=== PATIENT | male | born 1970 | race Caucasian/White ===

== ENCOUNTER 2022-05-04 00:38 | Inpatient (IN) | payer OTHER, SELFPAY ==
[2022-05-04] VITALS (22 sets, daily range): BP systolic 111–145; BP diastolic 65–88; PULSE 65–93; RESP 11–20; TEMP 36.3–36.9; O2SAT 93–99; BMI 25.2
--- NOTE | ~2022-05-04 | XR_ITS ---
Clinical Indication: Chest pain PA and lateral views of the chest: Comparison: 06/11/2006 Findings: The lungs are clear, without evidence of focal consolidation or pleural effusion. Cardiome diastinal silhouette is within normal limits. Bones and soft tissues are unremarkable. Impression: Normal chest. Reviewed, dictated and finalized at location . MANAGER Impression: Normal chest.
--- NOTE | 2022-05-04 00:40 | ECG_ITS ---
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
--- NOTE | 2022-05-04 00:56 | ED.GENADULT ---
HPI - General Adult General Chief complaint: Chest Pain Stated complaint: Chest pain Time Seen by Provider: 05/04/22 00:49 History of Present Illness HPI narrative: Patient 51-year-old gentleman who presents the emergency department with chief complaint of chest pain patient reports that several days ago he had an episode where he was at home and was walking through the house and had sudden onset pain on the left side of his chest radiating to his left arm patient states he got very short of breath but reports the pain then slowly dissipated the patient states that since then symptoms have resolved. Patient reports that he took 2 325 mg aspirin at 8 PM Related Data Allergies Allergy/AdvReac Type Severity Reaction Status Date / Time No Known Allergies Allergy Unverified 11/29/17 08:13 Review of Systems Review of Systems: A 10 system review of systems was completed on the patient and is negative except for what is stated in the HPI. Nursing and ancillary documentation was reviewed. [facility] Past Medical History Medical History GERD (gastroesophageal reflux disease) Kidney stones Psoriasis Rib fractures Right hand fracture Surgical History Surgical History H/O left knee surgery Social History Social History Smoking status: Heavy tobacco smoker Alcohol intake: never Exam Narrative: GENERAL: Well-appearing, well-nourished, and in no acute distress. HEAD: Normocephalic, atraumatic. EYES: PERRLA and EOMI. ENT: Nares clear, no rhinorrhea or epistaxis. Mucous membranes moist. NECK: Supple. CHEST: Clear to auscultation. No respiratory distress. HEART: Regular rate and rhythm. No murmur heard. Normal peripheral pulses. ABDOMEN: Soft, nontender, nondistended, normal active bowel sounds. EXTREMITIES: Normal range of motion. No edema. SKIN: Warm, dry, no rash. NEURO: No focal deficits. Alert and oriented x3. PSYCH: Normal mood and affect. Course Vital Signs Vital signs: Vital Signs Pulse Rate 75 05/04/22 00:43 Respiratory Rate 16 05/04/22 00:43 Pulse Rate 81 05/04/22 01:16 Respiratory Rate 15 05/04/22 01:16 Blood Pressure 127/86 05/04/22 01:16 Pulse Oximetry 95 05/04/22 01:16 Oxygen Delivery Room Air 05/04/22 00:58 Medical Decision Making MDM Narrative Medical decision making narrative: EKG is sinus rhythm rate of [address] depressions present in V3 through V6 no ST elevations present Patient's laboratory studies show a white count of 11.3 electrolytes are within normal limits. Troponin is 0.362. Chest x-ray shows no focal infiltrate The patient has already taken aspirin prior to arrival Patient will be started on a heparin drip Case was discussed with the hospitalist the patient will be admitted to the hospital. Vital Signs Vital Signs: Vital Signs Pulse Rate 75 05/04/22 00:43 Respiratory Rate 16 05/04/22 00:43 Pulse Rate 81 05/04/22 01:16 Respiratory Rate 15 05/04/22 01:16 Blood Pressure 127/86 05/04/22 01:16 Pulse Oximetry 95 05/04/22 01:16 Oxygen Delivery Room Air 05/04/22 00:58 Lab Data 05/04/22 00:55 05/04/22 00:55 Labs: Lab Results 05/04/22 05/04/22 05/04/22 Range/Units 00:55 00:55 00:55 WBC 11.3 H (4.5-10.0) K/mm3 RBC 4.74 (4.6-6.20) M/mm3 Hgb 15.7 (14.0-18.0) g/dL Hct 45.7 (42.0-52.0) % MCV 96.4 (80-100) fl MCH 33.1 (26-34) pg MCHC 34.4 (32-36) g/dl RDW 13.5 (11.5-14.5) % Plt Count 235 (150-375) k/mm3 MPV 9.3 (7.4-10.4) fl Immature Gran % (Auto) 0.4 (0-0.5) % Neut % (Auto) 56.8 (45.5-73.1) % Lymph % (Auto) 33.8 (18.3-44.2) % [place] % (Auto) 6.2 (2.6-8.5) % Eos % (Auto) 2.3 (0-4.4) % Baso % (Auto) 0.5 (0.2-1.2) %
[2022-05-04 01:02] LABS: Basophils Absolute Auto 0.1 K/mm3 (0.0-0.1); Basophils Percent Auto 0.5 % (0.2-1.2); Eosinophils Absolute Auto 0.3 K/mm3 (0-0.3); Eosinophils Percent Auto 2.3 % (0-4.4); Hematocrit 45.7 % (42.0-52.0); Hemoglobin 15.7 g/dL (14.0-18.0); Immature Granulocyte Absolute 0.05 K/mm3 (0.00-0.031); Immature Granulocyte Percent A 0.4 % (0-0.5); Lymphocytes Absolute Auto 3.81 K/mm3 (0.9-3.2); Lymphocytes Percent Auto 33.8 % (18.3-44.2); Mean Corpuscular HGB Conc 34.4 g/dl (32-36); Mean Corpuscular Hemoglobin 33.1 pg (26-34); Mean Corpuscular Volume 96.4 fl (80-100); Mean Platelet Volume 9.3 fl (7.4-10.4); Monocytes Absolute Auto 0.7 K/mm3 (0.1-0.6); Monocytes Percent Auto 6.2 % (2.6-8.5); Neutrophils Absolute Auto 6.4 K/mm3 (1.3-6.7); Neutrophils Percent Auto 56.8 % (45.5-73.1); Platelet Count Result 235 k/mm3 (150-375); Red Blood Count 4.74 M/mm3 (4.6-6.20); Red Cell Distribution Width 13.5 % (11.5-14.5); White Blood Count 11.3 K/mm3 (4.5-10.0)
[2022-05-04 01:16] LABS: INR 0.9
[2022-05-04 01:19] LABS: Alanine Aminotransferase 28 U/L (6-50); Albumin Level 4.1 g/dL (3.5-5.1); Alkaline Phosphatase 121 U/L (38-126); Anion Gap 7 mmol/L (8-16); Aspartate Amino Transferase 26 U/L (17-59); Bilirubin,Total 0.6 mg/dL (0.2-1.3); Blood Urea Nitrogen 8 mg/dL (9-20); Calcium 8.4 mg/dL (8.4-10.2); Carbon Dioxide 26 mmol/L (22-30); Chloride 104 mmol/L (98-107); Estimated CRCL calculation 91 ml/min; Estimated Glomerular Filt Rate > 60; Glucose 96 mg/dL (65-110); Lipase 29 U/L (23-300); Potassium 3.5 mmol/L (3.4-5.0); Sodium 137 mmol/L (137-145)
[2022-05-04 01:37] LABS: Troponin I 0.362 ng/mL (0.000-0.034)
[2022-05-04 02:09] LABS: NT Pro B Type Natriuretic Pept 292 pg/mL (19.9-100)
[2022-05-04] MEDS: HEPARIN SOD/D5W 100 UNITS/ML 25,000 UNITS/250 ML BAG 10 UNITS IV CONT (02:16)
[2022-05-04] MEDS: HEPARIN SODIUM 5,000 UNITS/ML VIAL 4000 UNITS IV PUSH (02:18)
--- NOTE | 2022-05-04 03:27 | PC.NURSE ---
This patient, Lopez Pierson, was admitted to IMU Room 200-01. Patient/family oriented to hospital policies and general routines including ID bracelet, bed and alarms, visiting hours, pain management, procedures, bathroom and other care routines, personal items, smoking policy, room service/diet, and visiting hours. Information on how to activate the Rapid Response Team has been discussed. Patient/Family are encouraged to report perceived risks to care and to ask questions if they do not understand what they are told or what they should do.
[2022-05-04 03:35] LABS: Influenza A QL RT-PCR Negative (Negative); Influenza B QL RT-PCR Negative (Negative); SARS-CoV-2 RNA PCR Negative
[2022-05-04 04:41] LABS: Basophils Absolute Auto 0.1 K/mm3 (0.0-0.1); Basophils Percent Auto 0.6 % (0.2-1.2); Eosinophils Absolute Auto 0.3 K/mm3 (0-0.3); Eosinophils Percent Auto 2.1 % (0-4.4); Hematocrit 43.8 % (42.0-52.0); Hemoglobin 14.9 g/dL (14.0-18.0); Immature Granulocyte Absolute 0.06 K/mm3 (0.00-0.031); Immature Granulocyte Percent A 0.5 % (0-0.5); Lymphocytes Absolute Auto 2.61 K/mm3 (0.9-3.2); Lymphocytes Percent Auto 21.5 % (18.3-44.2); Mean Corpuscular Hemoglobin 32.7 pg (26-34); Mean Corpuscular Volume 96.3 fl (80-100); Mean Platelet Volume 9.4 fl (7.4-10.4); Monocytes Absolute Auto 0.7 K/mm3 (0.1-0.6); Neutrophils Absolute Auto 8.4 K/mm3 (1.3-6.7); Neutrophils Percent Auto 69.3 % (45.5-73.1); Platelet Count Result 228 k/mm3 (150-375); Red Blood Count 4.55 M/mm3 (4.6-6.20); Red Cell Distribution Width 13.4 % (11.5-14.5); White Blood Count 12.1 K/mm3 (4.5-10.0)
[2022-05-04 04:51] LABS: Prothrombin Time 12.3 Seconds (11.1-14.7)
[2022-05-04 04:53] LABS: Partial Thromboplastin Time 59.7 SECONDS (22.3-36.8)
[2022-05-04 05:04] LABS: Troponin I 0.354 ng/mL (0.000-0.034)
--- NOTE | 2022-05-04 05:18 | PM.IMHP ---
H&P: HPI History of Present Illness Date/Time: 05/04/22 05:18 Chief Complaint: Chest pain Narrative: 51-year-old male with a past medical history of chronic tobacco use, hyperlipidemia and low testosterone who presented to the ER via private vehicle due to chest pain. The patient reports that 2 weekends ago proximally the 19 of April he had been doing activities around the house. He stated the been up and down stairs and had been chasing the dogs around when he began having severe left-sided chest tightness. He reported that he felt very hot but denied diaphoresis. He then noted that the pain traveled down his left arm. It was accompanied with some nausea. He denied any diaphoresis or lightheadedness. The pain lasted about 5 minutes and resolved with rest. He reports that since that time he has had recurrence of the pain he any time he exerts himself to any significant degree. The pain is occurring with increasing frequency. He went to [employer] today and had to stop several times when he was walking around the store due to the pain. He became so bad that he had actually go sit down up front. He thought that the pain got better when he moved his arm around but not to any significant degree the pain simply resolved after he had rested for quite some time. He decided to come in this evening when he developed chest pain while laying down. He reported that he was already in bed and was playing a game on his phone when he had recurrence of the same kind of chest pain. He took 2 full-dose aspirins and came to the ER. He denies any palpitations. He does feel short of breath when the chest pain occurs but is not short of breath otherwise. He denies any cough or congestion. He has smoked 1.5 packs of cigarettes per day since he was about 20 years old. He denies a known history of COPD. He has not had any lower extremity swelling calf tenderness or palpitations. He has not had any fevers or chills. He does not have a known cardiac history. About 5 years ago he was being treated for low testosterone any developed polycythemia which he had phlebotomy 4. He also had some elevated cholesterol associated with his testosterone treatment. The patient does have a family history of premature coronary artery disease. His father had his 1st ND at age 43. He had a brother who of what was presumed to be viral myocarditis at age 25. The patient's pain had resolved prior to arriving to the ER. He has not had a recurrence of his chest pain. His main complaint at this time is dry mouth. He reports that his primary care physician retired and he did not like his primary care physician's replacement. Thusly, he has not seen a primary care physician in several years. Review of Systems Review of Systems: 12 systems were reviewed with pertinent positives and negatives per HPI. Except as documented in the HPI, all other systems were reviewed and are negative. He has a crowded posterior oropharynx. He denies snoring or excessive daytime fatigue. He has not had a screening colonoscopy. 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 They have 2 children ages 17 and 19. 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
[2022-05-04 06:15] LABS: Cholesterol 192 mg/dL (0-200); HDL Direct 43 mg/dL; Triglycerides 102 mg/dL (<150)
[2022-05-04 06:26] LABS: LDL Cholesterol Direct 113 mg/dL
[2022-05-04 08:42] LABS: Troponin I 0.406 ng/mL (0.000-0.034)
--- NOTE | 2022-05-04 09:56 | PM.CNCAR ---
Assessment and Plan Assessment and plan (1) Non-ST elevation MT (NSTEMI): Code(s): I21.4 - Non-ST elevation (NSTEMI) myocardial infarction Status: Acute Plan 51-year-old smoker who presents with several episodes of ischemic type chest pain starting several weeks ago. Had an episode of rest pain yesterday that prompted admission. He has been placed on IV heparin overnight and is stable is morning. Recommendation was to proceed with coronary angiography today. The patient and his understand the procedure after this consultation including the risks and are agreeable to proceed. Further recommendations will be forthcoming those findings Rudy Miles MD [facility] History of Present Illness History of Present Illness Consult date/time: 05/04/22 09:56 Reason For Visit: nstemi Narrative: This is a 51-year-old gentleman I am seeing at the request of the hospitalist in the setting of what appears to be acute coronary syndrome. The patient has a history of cigarette smoking and has the recent onset of episodes of chest pain that have created concern. The 1st of these episodes occurred about 3 weeks ago when he says he was very active 1 day with his dogs and he was chasing up some stairs after his dog since experience some chest pain he described it as a pressure-like left precordial syndrome that caused him to be short of breath described as a pressure-like or burning sensation that resolved with several minutes of rest. About a week ago he had a similar episode that occurred with similar exertion. Last night he had an episode that occurred while he was simply walking around in a store doing some shopping and another episode last night that occurred essentially at rest. This prompted him to come to the emergency room for evaluation. In the emergency room his electrocardiogram shows sinus rhythm with some ischemic looking ST segment depression across the precordial leads. His troponin levels out of normal range at 0.3 and he was placed on heparin and admitted to the IMU. I am seeing him this morning in consultation he is otherwise feeling well this morning patient is in the room with his and his daughter. 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 He also says that he smokes about a pack to a pack and half per day. He has no knowledge of dyslipidemia hypertension or diabetes. He says his father developed coronary artery disease when he was in his mid 40s at but has been treated for many years with a assurance manager insurance he is now in his mid 80s and is still alive. One of his brothers developed a viral cardiomyopathy and in his 20s. Review of Systems Constitutional: Constitutional: Reports no additional constitutional complaints Eyes: Eyes: Reports no additional eye complaints ENT: Reports system reviewed and no additional complaints, except as documented Cardiovascular: Cardiovascular: Reports as per HPI Respiratory: Respiratory: Reports no additional respiratory complaints Gastrointestinal: Gastrointestinal: Reports no additional gastrointestinal complaints Musculoskeletal: Musculoskeletal: Reports no additional musculoskeletal complaints Integumentary/Breasts: Skin/Breast: Reports system reviewed and no additional complaints, except as docu Neurologic: Reports system reviewed and no additional complaints, except as documented Endocrine: Endocrine: Reports no additional endocrine complaints Hematologic/Lymphatic: Hematologic/Lymphatic: Reports no additional hematologic/lymphatic complaints Allergic/Immunologic: Allergic/Immunologic: Reports no additional allergic/immunologic complaints [facility] Past Medical History Medical History (Updated 05/04/22 @ 07:13 by Bambi Desai DO) GERD (gastroesophageal reflux disease) Hypogonadism in male No longer receiving testosterone therapy since approximately 2018 Kidney stones Psoriasis Rib fractures Right hand fracture Secondary polycythemia Due
--- NOTE | 2022-05-04 10:48 | WPDMODSED ---
Moderate Sedation Note-Pt Data Patient Data Diagnosis: acute coronary syndrome Present Complaint: intermittent chest pain Procedure to be performed/Plan: left heart catheterization Allergies Allergy/AdvReac Type Severity Reaction Status Date / Time No Known Allergies Allergy Unverified 11/29/17 08:13 Home Medications Medication Instructions Recorded Confirmed Type No Home Medications 05/04/22 05/04/22 History Current Medications: Active Medications Aspirin (Aspirin 81 Mg Enteric Tablet) 81 mg PO QAM LUCILLE Atorvastatin Calcium (Atorvastatin 40 Mg Tablet) 40 mg PO DAILY [facility] Heparin Sodium (Porcine) (Heparin Sodium 5,000 Units/Ml Vial) 4,000 units IV PUSH PRN PRN PRN Reason: aPTT less than 55 seconds Heparin Sodium (Porcine) (Heparin Sodium 5,000 Units/Ml Vial) 3,500 units IV PUSH PRN PRN PRN Reason: aPTT 55 - 70 seconds Heparin Sodium/Dextrose (Heparin Sodium/D5w 100 Units/Ml) 25,000 units in 250 mls @ 10 mls/hr IV CONT .Q24H LUCILLE; Protocol Last Titration: 05/04/22 04:00 Dose: 1,000 units/hr, 10 mls/hr Sedation/Anesthesia: No previous sedation/anesthesia problems (including family history). [facility] Past Medical History Medical History (Updated 05/04/22 @ 07:13 by Bambi Desai DO) GERD (gastroesophageal reflux disease) Hypogonadism in male No longer receiving testosterone therapy since approximately 2018 Kidney stones Psoriasis Rib fractures Right hand fracture Secondary polycythemia Due to testosterone therapy Vitamin D deficiency Surgical History Surgical History (Updated 05/04/22 @ 07:15 by Bambi Desai DO) History of meniscectomy of left knee Family History Family History Father Myocardial infarct Social History Social History (Updated 05/04/22 @ 07:19 by Bambi Desai DO) Social History: He has been since proximally 2002. They have 2 children ages 17 and 19. 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 He has smoked as much as 1.5 packs per cigarettes since he was a teenager. He denies any significant alcohol or illicit substance use. Code status: Full code Surrogate decision maker: Smoking packs per day: 1.5 Smoking cigarettes per day: 30.0 Years smoked: 30 Smoking pack-years: 45.00 Smoking status: Heavy tobacco smoker Tobacco type: cigarettes Second hand tobacco smoke exposure: Yes Alcohol intake: never Substance use: never Lack of Transportation: No Lack of Food: Never True Current Housing: I Have Housing Concerned About Future Housing: No Difficulty Paying Gas/Electric Bills: No Difficulty Paying for Meds: No Currently Unemployed: No Education: High School Diploma/GED Difficulty w/ Childcare or Family Care: No Spiritual care concerns: No Mod Sed Physical Exam Physical Exam Pre Procedural Exam: Normal: Appearance, Neck, Throat, Airway, Lungs, Heart Size, Heart Rate, Heart Rhythm, Neuro Exam and Extremities Hours since solid foods: 12 Hours since liquid intake: 12 Mallampati Classification: class II Internal Medicine - PN: Obj Da Vital Signs Vital Signs: Vital Signs - 24 hr 05/04/22 00:45 05/04/22 00:50 05/04/22 00:43 Temperature Pulse Rate 78 79 75 Respiratory Rate 20 16 Blood Pressure 145/86 H Pulse Oximetry 96 Oxygen Delivery Room Air 05/04/22 00:45 05/04/22 00:46 05/04/22 00:58 Temperature Pulse Rate 83 84 Respiratory Rate 14 13 Blood Pressure 145/86 H Pulse Oximetry 96 Oxygen Delivery Room Air 05/04/22 00:47 05/04/22 01:11 05/04/22 01:15 Temperature Pulse Rate 79 93 83 Respiratory Rate 14 17 Blood Pressure Pulse Oximetry 94 Oxygen Delivery 05/04/22 01:16 05/04/22 01:17 05/04/22 02:00 Temperature Pulse Rate 81 82 77 Respiratory Rate 15 15 11 L Blood Pressure 127/86 Pul
--- NOTE | 2022-05-04 11:00 | PC.NURSE ---
Report given to ESMER Coreas. 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
--- NOTE | 2022-05-04 11:33 | WPDCARDPROC ---
Cardiac Cath Procedure Note Date of procedure:: 05/04/22 Performing physician:: Rudy Miles MD Indication:: acute coronary syndrome Brief clinical history:: this is a 51-year-old man longstanding smoker who entered the hospital with acute coronary syndrome. He has had several episodes of exertional chest pain and last night an episode of pain at rest that prompted him to come to the emergency room. He has ischemic ST segment changes on his electrocardiogram and a modest troponin rise. Procedure Procedure performed:: Left ventriculogram coronary angiogram insertion of intra-aortic balloon pump Sedation/Medication given:: Fentanyl 100 mg Versed 2 mg case start time 10:57 a.m. case end time 11:24 a.m. sedation provided by Kate Snell RN trained observer Access site:: right femoral artery Estimated blood loss:: 30 cc Procedure note:: patient was brought to the cardiac catheterization lab in the postabsorptive state where the right femoral triangle was prepared and draped in normal fashion. Anesthesia was provided with 1% lidocaine infiltrated locally. Using the modified Seldinger technique the femoral artery was punctured and I placed a 5 Luxembourger vascular sheath. After this left heart catheterization was carried out. I used a 5 Luxem[place]ger angled pigtail catheter to measure left-sided hemodynamics and to inject left ventriculography in the 30 degree CARRASCO projection. Following this a 5 Luxembour[place] JR4 catheter was used to engage and inject the right coronary artery. Five Luxembourger FL4 catheter was then used to engage and inject the left coronary artery in multiple projections. The cineangiograms were reviewed and it was determined that it was appropriate to place intra-aortic balloon pump for stabilization. The guidewire was placed into the thoracic aorta the sheath was withdrawn and the 8.5 Luxembourger balloon pump sheath was then placed into the artery. The balloon pump device was then advanced over the wire into the thoracic aorta in standard position. The balloon was filled and one-to-one counterpulsation was initiated and established. Angiography of the balloon pump was performed to confirm appropriate balloon position. After this the balloon pump and the insertion sheath were sutured into position with 2-0 silk ties. The patient was given a 5000 unit bolus of heparin and he was taken to the ICU for post cath recovery with the balloon pump and plans will be made for transfer to higher level of care for cardiothoracic surgery consultation because of left main disease as described below. Findings:: the left main coronary artery is moderate caliber and is patent proximally and the midportion. There is high-grade distal stenosis of the left main of 90-95%. This lesion progresses into the ostium of both the LAD and circumflex as described below. There is KATHE 3 flow at this time in the left coronary artery. The left anterior descending is a medium caliber artery extending down to the apex. There is ostial 95% stenosis of the left main as described above extending from the distal left main. The remainder of the LAD has [id number] luminal irregularities but no flow-limiting disease. The circumflex is a moderate caliber artery giving rise to the marginal branches the circumflex has 95-99% ostial stenosis once again extending from the left main disease described above. The Large marginal branches appear to be free of significant disease distal to this. the last posterior branch of the circumflex where the vessel is extremely small has a 95% stenosis. The right coronary artery is moderate caliber dominant to the posterior circulation there is mild diffuse plaquing with luminal irregularities throughout the right coronary artery. There is a RPDA that appears to be a bifurcating vessel. One of these subbranches has a 80% stenosis. left ventricle is normal in size all segments appear to contract normally. The global
--- NOTE | 2022-05-04 11:54 | WPDCNINT ---
Assessment and Plan Assessment and plan (1) Non-ST elevation [place] (NSTEMI): Code(s): I21.4 - Non-ST elevation (NSTEMI) myocardial infarction Status: Acute Assessment and Plan: Status post cardiac catheterization which showed 1.? ? Right coronary dominant circulation with critical coronary artery disease with high-grade unstable distal left main stenosis as described above which does continue into the ostium of both the LAD and circumflex vessels which are both subtotally occluded at the ostial segment says because of this lesion.? This is obviously the culprit for the patient's ACS presentation 2. ? high-grade stenosis of the last posterior branch of the circumflex which is extremely small 3. ? mild diffuse disease throughout the trunk of the right coronary artery a sub branch of the RPDA has 80% stenosis 4. ? normal left ventricular systolic function Intra-aortic balloon pump placed and is currently at 1:1 Blood pressure adequate ICU telemetry monitoring Aspirin, statin and heparin infusion Cardiology is planning to transfer patient to tertiary facility for CABG Will hold further workup including echocardiogram at this time since patient is being transferred Case discussed with Cardiology (2) Tobacco abuse counseling: Code(s): Z71.6 - Tobacco abuse counseling Status: Acute Assessment and Plan: Patient and his both counseled and patient was encouraged to quit smoking. (3) Coronary disease: Code(s): I25.10 - Atherosclerotic heart disease of [place] coronary artery without angina pectoris Status: Acute Assessment and Plan: See above (4) Back pain: Code(s): M54.9 - Dorsalgia, unspecified Status: Acute Assessment and Plan: Back pain from laying flat P.r.n. analgesic ordered (5) Urinary retention: Code(s): R33.9 - Retention of urine, unspecified Status: Acute Assessment and Plan: Patient lying flat with balloon pump able to urinate in urinal Replace [place] catheter at this time Plan DVT prophylaxis -currently on heparin drip Code Status - Full Code Total Critical Care Time - 35 minutes Due to a high probability of clinically significant, life threatening deterioration, the patient required my highest level of preparedness to intervene emergently and I personally spent this critical care time directly and personally managing the patient. This critical care time included obtaining a history; examining the patient; pulse oximetry; ordering and review of studies; arranging urgent treatment with development of a management plan; evaluation of patient's response to treatment; frequent reassessment; and discussions with other providers. It was exclusive of separately billable procedures and treating other patients and teaching time. Please see Assessment and Plan section and the rest of the note for further information on patient assessment and treatment Coil Cutter Consult Note Consult date: 05/04/22 Reason for consult: Coronary artery disease, NSTEMI HPI: Lopez Pierson is a 51 year old male with a past medical history of chronic tobacco use, hyperlipidemia who presented to the ER via private vehicle due to chest pain earlier in the a.m. today.? He reported that while chasing his dogs around he began having severe left-sided chest tightness, he felt flushed but retic, pain traveled down his left arm and was associated with some nausea.? He denied any diaphoresis or lightheadedness.? The pain lasted about 5 minutes and resolved with rest.?Since that time he has had recurrence of the pain any time he exerts himself to any significant degree and the pain is occurring with increasing frequency.? He has smoked 1.5 packs of cigarettes per day since he was about 20 years old.? He denies a known history of COPD.? He has not had any lower extremity swelling calf tenderness or palpitations.? He has not had any fevers or chills.? No known cardiac history.?
--- NOTE | 2022-05-04 12:07 | PC.NURSE ---
Patient transferred from director of cath lab to ICU bed 2 at 11:55 with a balloon pump in place.
[2022-05-04] MEDS: SODIUM CHLORIDE 0.9% IV 1,000 ML 125 ML IV CONT (12:09)
--- NOTE | 2022-05-04 12:23 | PM.IMPN ---
Progress Note: A&P Assessment and Plan (1) Non-ST elevation ID (NSTEMI): Code(s): I21.4 - Non-ST elevation (NSTEMI) myocardial infarction Status: Acute Assessment and Plan: Patient presents to the emergency room with complaints of chest pain with accelerating symptoms. Troponins are elevated but flat. EKG reviewed personally showing ST-T wave depression in anterior lateral leads consistent with ischemia. There was concern that he had unstable angina and heparin drip started. Patient was also started on aspirin and Lipitor. Cardiology was consulted. Patient underwent left heart catheterization 05/04/22: 1.? ? Right coronary dominant circulation with critical coronary artery disease with high-grade unstable distal left main stenosis as described above which does continue into the ostium of both the LAD and circumflex vessels which are both subtotally occluded at the ostial segment says because of this lesion.? This is obviously the culprit for the patient's ACS presentation 2. ? high-grade stenosis of the last posterior branch of the circumflex which is extremely small 3. ? mild diffuse disease throughout the trunk of the right coronary artery a sub branch of the RPDA has 80% stenosis 4. ? normal left ventricular systolic function Plan for transfer to tertiary care center for further management of his severe CAD. (2) Coronary disease: Code(s): I25.10 - Atherosclerotic heart disease of [place] coronary artery without angina pectoris Status: Acute Assessment and Plan: As above (3) Tobacco abuse counseling: Code(s): Z71.6 - Tobacco abuse counseling Status: Acute Assessment and Plan: Patient was educated about the benefits of smoking cessation. Subjective Date/time seen: 05/04/22 12:24 Interval history: 51yo male with hx of tobacco abuse here for chest pain and found to have critical CAD. Patient was seen earlier prior to heart catheterization. He was having some mild chest discomfort in the left axillary area without radiation. It was similar to the pain that he presented with but much less severe. Pain was not pleuritic palpable. Patient was taken for heart catheterization short time later. Exam Narrative: AF 98.5 133/88 72 12 97% ra Gen - NARD Chest - CTA bilaterally, nml RR CV - RRR S1/S2. Tele showing no significant dysrhythmias Abd - Soft, NT/ND, Positive BS Ext - No pedal edema Psych - Nml mood and affect Skin - Warm and dry Objective Data Vital Signs Vital Signs: Vital Signs - 24 hr 05/04/22 00:45 05/04/22 00:50 05/04/22 00:43 Temperature Pulse Rate 78 79 75 Respiratory Rate 20 16 Blood Pressure 145/86 H Pulse Oximetry 96 Oxygen Delivery Room Air 05/04/22 00:45 05/04/22 00:46 05/04/22 00:58 Temperature Pulse Rate 83 84 Respiratory Rate 14 13 Blood Pressure 145/86 H Pulse Oximetry 96 Oxygen Delivery Room Air 05/04/22 00:47 05/04/22 01:11 05/04/22 01:15 Temperature Pulse Rate 79 93 83 Respiratory Rate 14 17 Blood Pressure Pulse Oximetry 94 Oxygen Delivery 05/04/22 01:16 05/04/22 01:17 05/04/22 02:00 Temperature Pulse Rate 81 82 77 Respiratory Rate 15 15 11 L Blood Pressure 127/86 Pulse Oximetry 95 94 96 Oxygen Delivery 05/04/22 02:01 05/04/22 02:15 05/04/22 02:16 Temperature Pulse Rate 79 73 77 Respiratory Rate 12 13 13 Blood Pressure 117/76 115/84 Pulse Oximetry 95 95 96 Oxygen Delivery 05/04/22 03:35 05/04/22 04:00 05/04/22 04:00 Temperature 97.4 F L Pulse Rate 81 74 Respiratory Rate 20 Blood Pressure 123/74 Pulse Oximetry 99 99 Oxygen Delivery Room Air 05/04/22 06:00 05/04/22 07:55 05/04/22 08:00 Temperature 97.8 F Pulse Rate 91 66 Respiratory Rate 16 Blood Pressure 111/65 Pulse Oximetry 93 Oxygen Delivery Room Air 05/04/22 08:00 05/04/22 10:00 Temperature Pulse Rate 69 74 Respiratory Rate Blood Pressure
[2022-05-04] MEDS: MORPHINE SULFATE (*CRX) 4 MG/ML INJ IV PUSH (12:46)
[2022-05-04] MEDS: OXYMETAZOLINE HCL 0.05% NAS 15 ML BTL (*BKC) 1 SPRAY NASAL (13:39)
[2022-05-04 14:03] LABS: Basophils Percent Auto 0.5 % (0.2-1.2); Eosinophils Absolute Auto 0.1 K/mm3 (0-0.3); Eosinophils Percent Auto 0.8 % (0-4.4); Hematocrit 44.4 % (42.0-52.0); Hemoglobin 15.3 g/dL (14.0-18.0); Immature Granulocyte Absolute 0.04 K/mm3 (0.00-0.031); Immature Granulocyte Percent A 0.5 % (0-0.5); Lymphocytes Absolute Auto 1.78 K/mm3 (0.9-3.2); Lymphocytes Percent Auto 20.1 % (18.3-44.2); Mean Corpuscular HGB Conc 34.5 g/dl (32-36); Mean Corpuscular Hemoglobin 32.5 pg (26-34); Mean Corpuscular Volume 94.3 fl (80-100); Mean Platelet Volume 9.5 fl (7.4-10.4); Monocytes Absolute Auto 0.5 K/mm3 (0.1-0.6); Monocytes Percent Auto 5.5 % (2.6-8.5); Neutrophils Absolute Auto 6.4 K/mm3 (1.3-6.7); Neutrophils Percent Auto 72.6 % (45.5-73.1); Platelet Count Result 232 k/mm3 (150-375); Red Blood Count 4.71 M/mm3 (4.6-6.20); Red Cell Distribution Width 13.4 % (11.5-14.5); White Blood Count 8.8 K/mm3 (4.5-10.0)
[2022-05-04 14:15] LABS: Prothrombin Time 12.7 Seconds (11.1-14.7)
[2022-05-04 14:17] LABS: Partial Thromboplastin Time 59.6 SECONDS (22.3-36.8)
--- NOTE | 2022-05-04 14:24 | PC.NURSE ---
Cardiopulmonary Rehab Services flyer was given to patient.
--- NOTE | 2022-05-04 14:38 | PC.NURSE ---
Patient transferred to [facility] room 1208 at 1430. Patient had heparin and normal saline running upon time of transfer.
--- NOTE | 2022-05-04 14:45 | PM.TDS ---
Transfer Discharge Sum: Prov Provider Date of admission: 05/04/22 01:57 Primary care physician: DRAFTING INSTRUCTOR PHYSICIAN Admitting clinician: Bambi Desai DO Consults: 05/04/22 Consult to Physician Routine Comment: Consulting Provider: Sarah Beck call center associate/MD group to consult: Cardiology--[facility] Reason for consultation: Non STEMI Has provider been notified: Yes DS: Admitting Diagnosis Discharge Date 05/04/22 Admitting Diagnosis Chest pain DS: Discharge Diagnosis Discharge Diagnosis (1) Non-ST elevation [place] (NSTEMI): Code(s): I21.4 - Non-ST elevation (NSTEMI) myocardial infarction Status: Acute (2) Coronary disease: Code(s): I25.10 - Atherosclerotic heart disease of [place] coronary artery without angina pectoris Status: Acute (3) Tobacco abuse counseling: Code(s): Z71.6 - Tobacco abuse counseling Status: Acute (4) Back pain: Code(s): M54.9 - Dorsalgia, unspecified Status: Acute (5) Urinary retention: Code(s): R33.9 - Retention of urine, unspecified Status: Acute Transfer Discharge Sum: Med Medications Active and Home Medications: Home Medications No Home Medications 05/04/22 [History Confirmed 05/04/22] Transfer Discharge Sum: Hosp Hospital Course Hospital course: Lopez Pierson is a 51yo male with hx of tobacco abuse here for chest pain and found to have critical CAD. Please see H&P for details. Patient presents to the emergency room with complaints of chest pain with accelerating symptoms.? Troponins were elevated but flat.? EKG showing ST-T wave depression in anterior lateral leads consistent with ischemia.? There was concern that he had unstable angina and heparin drip started.? Patient was also started on aspirin and Lipitor.? Cardiology was consulted.? Patient underwent left heart catheterization 05/04/22: 1.? ? Right coronary dominant circulation with critical coronary artery disease with high-grade unstable distal left main stenosis as described above which does continue into the ostium of both the LAD and circumflex vessels which are both subtotally occluded at the ostial segment says because of this lesion.? This is obviously the culprit for the patient's ACS presentation 2. ? high-grade stenosis of the last posterior branch of the circumflex which is extremely small 3. ? mild diffuse disease throughout the trunk of the right coronary artery a sub branch of the RPDA has 80% stenosis 4. ? normal left ventricular systolic function Pt was transfered to tertiary care center for further management of his severe CAD. Time Spent with Patient Time attestation: Total time spent providing and/or coordinating transfer services: 35 minutes Exam Narrative: AF 98.5 133/88 72 12 97% ra Gen - NARD Chest - CTA bilaterally, nml RR CV - RRR S1/S2. Tele showing no significant dysrhythmias Abd - Soft, NT/ND, Positive BS Ext - No pedal edema Psych - Nml mood and affect Skin - Warm and dry DS: Data Data Completed and Pending Labs on day of discharge: Labs from last 24 hours 05/04/22 05/04/22 05/04/22 13:37 13:37 08:08 WBC 8.8 RBC 4.71 Hgb 15.3 Hct 44.4 MCV 94.3 MCH 32.5 MCHC 34.5 RDW 13.4 Plt Count 232 MPV 9.5 Immature Gran % (Auto) 0.5 Neut % (Auto) 72.6 Lymph % (Auto) 20.1 [place] % (Auto) 5.5 Eos % (Auto) 0.8 Baso % (Auto) 0.5 Lymph # (Auto) 1.78 [place] # (Auto) 0.5 Eos # (Auto) 0.1 Baso # (Auto) 0.0 Abs Immat Gran (auto) 0.04 H Absolute Neuts (auto) 6.4 Absolute Nucleated RBC 0.0 Nucleated RBC % 0.0 PT 12.7 INR 1.0 APTT 59.6 H 37.0 H Sodium Potassium Chloride Carbon Dioxide Anion Gap BUN Creatinine Estim Creat Clear Calc Estimated GFR Glucose Calcium Total Bilirubin AST ALT Alkaline Phosphatase Troponin I NT-Pro-B Natriuret Pep Total Protein Albumi
== END 2022-05-04 14:41 | disposition short-term general hospital (02) | DRG 272 ==
LOC: ANHED 02:00 → ANHIMU 02:44 → ANHICU 11:40 → ANHIMU 05-05 14:49
PROVIDERS: Admitting Provider Internal Medicine; Emergency Provider Emergency Medicine; Visit Provider Specialist
PROC: 4A023N7 Measurement of Cardiac Sampling and Pressure, Left Heart, Percutaneous Approach (ICD-10-PCS; CPT 93452; principal; 2022-05-04 11:00)
PROC: 5A02210 Assistance with Cardiac Output using Balloon Pump, Continuous (ICD-10-PCS; 2022-05-04 11:00)
DX: I21.4 Non-ST elevation (NSTEMI) myocardial infarction (principal); I25.10 Atherosclerotic heart disease of native coronary artery without angina pectoris; M54.9 Dorsalgia, unspecified; R33.9 Retention of urine, unspecified; Z20.822 Contact with and (suspected) exposure to COVID-19; K21.9 Gastro-esophageal reflux disease without esophagitis; I24.9 Acute ischemic heart disease, unspecified; L40.9 Psoriasis, unspecified; E78.5 Hyperlipidemia, unspecified; Z87.442 Personal history of urinary calculi; F17.210 Nicotine dependence, cigarettes, uncomplicated
CPT/HCPCS: 33967; 36415; 71046; 80053; 80061; 83690; 83880; 84484; 85025; 85610; 85730; 87636; 93005; 93458; 99291; A9270; C1887; C1894; J1644; J2250; J2270; J3010; J7030; J7040

== ENCOUNTER → 2022-07-21 10:59 | Outpatient (CLI) | payer OTHER, SELFPAY ==
--- NOTE | ~2022-07-21 | MR_ITS ---
MRI of the lumbar spine Clinical History: Back pain Technique: Axial T2-weighted images, and sagittal T1-weighted, T2-weighted, and T2 fat-sat images wer e acquired. Findings: There is no fracture or subluxation lumbar spine. Vertebral bodies maintain normal height a nd alignment. No suspicious bone marrow signal abnormality identified. At L1-L2, L2-L3, L3-L4, there is no disc bulge or herniation. No spinal canal stenosis or neural fora shelly narrowing at these levels. There are mild to moderate facet joint degenerative changes at these levels. At L4-L5, there is minimal disc bulge with facet arthropathy. Tiny annular fissure present. No spinal canal stenosis or neural foraminal narrowing. L5-S1, there is degenerative disc narrowing with mild diffuse disc bulge. There is facet arthropathy. No spinal canal stenosis. Possible minimal right neural foraminal narrowing. Left neural foramen pre served. Paravertebral soft tissues are unremarkable. Partially imaged right renal mass measures [address], with a hypointense rim and somewhat heterogeneous hyperintense interior. Impression: Minimal to mild degenerative spondylosis, as detailed above. 5 cm partially imaged right renal mass. Lesion does not appear to be a simple cyst. Renal cell carcin anthony is a strong consideration. Dedicated imaging of the right kidney recommended (pre and postcontras t CT or MR). Reviewed, dictated and finalized at location . Impression: Minimal to mild degenerative spondylosis, as detailed above. 5 cm partially imaged right renal mass. Lesion does not appear to be a simple c yst. Renal cell carcinoma is a strong consideration. Dedicated imaging of the r ight kidney recommended (pre and postcontrast CT or MR).
== END ==
PROVIDERS: PCP Family Medicine Sports Medicine; Visit Provider Anesthesiology Pain Medicine
DX: M54.40 Lumbago with sciatica, unspecified side (principal); G89.29 Other chronic pain; M47.896 Other spondylosis, lumbar region
CPT/HCPCS: 72148

== ENCOUNTER → 2022-07-31 10:58 | Outpatient (CLI) | payer OTHER, SELFPAY ==
--- NOTE | ~2022-07-31 | CT_ITS ---
CT of the Abdomen: Indication: Right renal mass Technique: 2.5 mm axial scans were obtained through the abdomen prior to and following intravenous a dministration of 100 cc of Omnipaque 350. Dose reduction technique was used on this scan by utilizing automated exposure control and iterative reconstruction technique. The dose-length product (DLP) was 1282.96 mGy-cm. Findings: Scans through the lung bases are unremarkable. The liver, spleen, pancreas, gallbladder, adrenals and left kidney are within normal limits. There is a 5.9 cm exophytic, heterogeneously enhancing right lower pole renal mass, suspicious for renal cell carcinoma until proven otherwise. Small nonobstructing right renal stones are noted. No evidence of aortic aneurysm. No lymphadenopathy. Visual is bowel loops are unremarkable. No ascites. Impression: 5.9 cm heterogeneously enhancing right lower pole renal mass, highly suspicious for renal cell carcin anthony. Reviewed, dictated and finalized at [facility]. Impression: 5.9 cm heterogeneously enhancing right lower pole renal mass, highly suspicious for renal cell carcinoma.
[2022-07-31 11:17] LABS: Estimated Glomerular Filt Rate > 60
== END ==
PROVIDERS: PCP Family Medicine Sports Medicine; Visit Provider Family Medicine Sports Medicine
DX: N28.89 Other specified disorders of kidney and ureter (principal)
CPT/HCPCS: 74170; Q9967

== ENCOUNTER 2022-08-06 08:30 | Outpatient (RCR) | payer OTHER, SELFPAY | END 2022-08-19 09:59 | disposition home or self-care (01) | LOC: ANHCPREHAB 08:30 | PROVIDERS: PCP Family Medicine Sports Medicine; Visit Provider Family Medicine Sports Medicine | DX: Z95.1 Presence of aortocoronary bypass graft (principal) | CPT/HCPCS: 93798 ==

== ENCOUNTER 2022-10-16 11:36 | Outpatient (CLI) | payer OTHER, SELFPAY ==
--- NOTE | ~2022-10-16 | NM_ITS ---
EXAMINATION: NM renal flow and function DATE: 10/16/2022 13:21 INDICATION: Right kidney mass. TECHNIQUE: 7.9 mCi Tc-99m MAG3 was administered IV. The patient was scanned in the supine position. A posterior abdominal radionuclide angiogram was obtained. A subsequent time course of static images of the kidneys, ureters, and bladder was obtained. COMPARISON: CT abdomen 07/31/22 FINDINGS: The posterior abdominal radionuclide angiogram and sequential static images show normal siz e, position, and morphology of the kidneys. Peak renal parenchymal uptake was 4 min in right kidney a nd 4 min in left kidney (normal peak 3-5 minutes). The relative early renal uptake was 52% on the ri ght and 48% on the left (<40% is abnormal). No abnormalities of the ureters or bladder are seen. T1/2 for clearance of activity from the right kidney and proximal collecting system was 11 minutes. T1/2 for clearance of activity from the left kidney and proximal collecting system was 10 minutes. IMPRESSION: 1. Symmetric kidney function. Reviewed, dictated and finalized at location A.
== END 2022-10-16 11:37 | disposition home or self-care (01) ==
PROVIDERS: PCP Family Medicine Sports Medicine; Visit Provider Urology
DX: N28.89 Other specified disorders of kidney and ureter (principal)
CPT/HCPCS: 78707; A9562

== ENCOUNTER 2024-02-24 10:30 | Emergency (ER) | payer OTHER, SELFPAY ==
[2024-02-24 10:46] VITALS: BP 111/80; PULSE 70; RESP 16; TEMP 36.4; O2SAT 99
--- NOTE | 2024-02-24 10:46 | ED_ITS ---
HPI - General Adult General Chief complaint: Wound/Laceration Stated complaint: Cut Finger/Shoulder/Rash Time Seen by Provider: 02/24/24 11:00 Source: patient Mode of arrival: ambulatory Limitations: no limitations History of Present Illness HPI narrative: Lopez is a 53-year-old male patient presenting to the clinic today with complaints of cut to his left 5th finger, right shoulder pain, and a rash to the middle of his upper back. He reports the right shoulder pain is been going on for approximately 2 weeks. He thinks he has rotator cuff tendinitis. Pain is to the top of the shoulder blade-is having pain with movement. States he has suffered from rotator cuff tendinitis in the past and symptoms are similar. Cut his left 5th finger yesterday around 4:00 oclock. in the afternoon. Has a flap- like laceration to the medial distal left 5th finger without nail involvement. Bleeding is controlled. Tetanus is up to date. Also reporting a itchy rash to the mid upper back that he thinks may be ringworm. Noticed this yesterday. Related Data Home Medications Medication Instructions Recorded Confirmed aspirin 81 mg chewable tablet 81 mg PO DAILY 02/24/24 02/24/24 metoprolol tartrate 25 mg tablet 25 mg PO BID 02/24/24 02/24/24 rivaroxaban 2.5 mg tablet (Xarelto) mg 02/24/24 02/24/24 rosuvastatin 40 mg tablet mg 02/24/24 Allergies Allergy/AdvReac Type Severity Reaction Status Date / Time No Known Allergies Allergy Verified 02/24/24 10:45 Review of Systems Review of Systems: Pertinent positives per HPI. Patient denies any fever, chills, rash, headache, visual changes, dizziness, cough, runny nose, sore throat, shortness of breath, chest pain, palpitations, nausea, vomiting, diarrhea, constipation, abdominal pain, or any urinary issues. [facility] Past Medical History Medical History (Updated 02/24/24 @ 11:09 by Francisco Messer APRN) GERD (gastroesophageal reflux disease) Hypogonadism in male No longer receiving testosterone therapy since approximately 2018 Kidney stones Psoriasis Rib fractures Right hand fracture Secondary polycythemia Due to testosterone therapy Vitamin D deficiency Surgical History Surgical History History of meniscectomy of left knee Family History Family History Father Myocardial infarct CAD (coronary artery disease) of artery bypass graft Sibling Diabetes mellitus Cardiomyopathy Social History Social History Social History: He has been since proximally 2002. They have 2 children ages 17 and 19. 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 He has smoked as much as 1.5 packs per cigarettes since he was a teenager. He denies any significant alcohol or illicit substance use. Code status: Full code Surrogate decision maker: Smoking packs per day: 1 Smoking cigarettes per day: 20.0 Years smoked: 36 Smoking pack-years: 36.00 Smoking status: Current every day smoker Tobacco type: cigarettes Second hand tobacco smoke exposure: Yes Smoking end date: 07/21/22 Additional smoking assessment comments: states 1- 1-1/2pkg's Alcohol intake: never Substance use: never Lack of Transportation: No Lack of Food: Never True Current Housing: I Have Housing Concerned About Future Housing: No Difficulty Paying Gas/Electric Bills: No Difficulty Paying for Meds: No Currently Unemployed: No Education: High School Diploma/GED Difficulty w/ Childcare or Family Care: No Spiritual care concerns: No Comments At the time of my signature, I reviewed and agree with the nursing past medical, surgical, social, and family history. There is no relevant family history pertinent to the patient complaint. Exam Narrative: General: Well-developed, well nourished, in no apparent distress Head: Normocephalic, atraumatic Eyes: Pupils equally round and reactive to light bilaterally, EOM intact, sclera and conjunctive clear, no discharge, lids normal Ears: TMs intact and clear, ear canals clear, no drainage, grossly hearing nor mal. Nose: Nares patent, no discharge, no inflammation, no sinus tenderness. Mouth: Oropharynx without lesions or masses, good dentition, MMM. Tongue midline, even rise and fall of uvula Neck: Supple, trachea midline, no enlargement of anterior or posterior cervical nodes, no thyroid masses or goiter palpable. Cardio: Regular rate and rhythm, s1 and s2 normal, no murmur appreciated. Resp: Clear to auscultation bilaterally anteriorly and posteriorly, no rhonchi, rales, wheezing or rubs Musculoskeletal: No deformity, tender to palpation over the AC joint of the right shoulder, positive Tsang, negative drop-arm, negative empty can and full can testing, grossly normal range of motion, muscle strength strong and equal, peripheral pulse strong, no edema, no cyanosis, normal gait and station Integumentary: Roosevelt, warm, and dry, circular red raised rash with central clearing to the mid upper back, 1.5 cm flap laceration to the left medial distal 5th finger. Bleeding is controlled Course Course Emergency Course: Portions of this record may have been created with voice recognition software. Level of Care: Express Care Visit Vital Signs Vital signs: Vital Signs Temperature 36.4 C L 02/24/24 10:46 Pulse Rate 70 02/24/24 10:46 Respiratory Rate 16 02/24/24 10:46 Blood Pressure 111/80 02/24/24 10:46 Pulse Oximetry 99 02/24/24 10:46 Temperature 36.4 C L 02/24/24 10:52 Pulse Rate 70 02/24/24 10:52 Respiratory Rate 16 02/24/24 10:52 Blood Pressure 111/80 02/24/24 10:52 Pulse Oximetry 99 02/24/24 10:52 Vital signs reviewed Medical Decision Making MDM Narrative Medical decision making narrative: At the time of visit patient is resting comfortably on the exam table. Patient appears to be nontoxic. Plan: Finger laceration is too old to suture. Recommend keeping wound clean and dry and apply mupirocin cream to the affected area to prevent infection. Patient has tinea corpus to the mid upper back. Will send in prescription for clotrimazole. I suspect patient has acute right shoulder pain possibly tendinitis. Prescription for diclofenac gel was sent to the pharmacy. Patient is unable to take oral prednisone or oral NSAIDs due to nephrectomy. Recommend taking additional Tylenol for as needed for pain Supportive measures were discussed with the patient and they voiced understanding discharge instructions and agrees to treatment plan. Return precautions reviewed Differential Diagnosis Differential Diagnosis: Tinea corpus, skin infection, laceration, cellulitis, rotator cuff tear, shoulder strain, tendinitis Vital Signs Vital Signs: Vital Signs Temperature 36.4 C L 02/24/24 10:46 Pulse Rate 70 02/24/24 10:46 Respiratory Rate 16 02/24/24 10:46 Blood Pressure 111/80 02/24/24 10:46 Pulse Oximetry 99 02/24/24 10:46 Temperature 36.4 C L 02/24/24 10:52 Pulse Rate 70 02/24/24 10:52 Respiratory Rate 16 02/24/24 10:52 Blood Pressure 111/80 02/24/24 10:52 Pulse Oximetry 99 02/24/24 10:52 Discharge Plan Discharge Clinical Impression: Tinea corporis Acute shoulder pain Qualifiers: Laterality: right Qualified Code(s): M25.511 - Pain in right shoulder Finger laceration Qualifiers: Encounter type: initial encounter Finger: little finger Damage to nail status: without damage Foreign body presence: without foreign body Laterality: left Qualified Code(s): S61.217A - Laceration without foreign body of left little finger without damage to nail, initial encounter Patient Disposition: Home, Self-Care Condition: Stable Instructions: Antibiotic Form, Laceration (ED), Tinea Corporis (ED), Shoulder Pain (ED) Additional Instructions: Leave bandage on for 24 hours then may remove and apply band aide covering as needed. Keep wound clean and dry Watch for signs and symptoms of infection- redness, streaking, swelling, purulent discharge, or increase in pain. Apply clotrimazole cream to the affected area on your back twice daily times 14 days Apply diclofenac gel to the right shoulder up to 4 times per day x1 week Follow-up with your primary care doctor in 1 week if symptoms persist Prescriptions: New clotrimazole 1 % cream 1 applic topical BID 14 Days Qty: 45 0RF mupirocin 2 % ointment 1 applic topical BID 7 Days Qty: 22 0RF diclofenac sodium 1 % gel 4 g topical QID 7 Days Qty: 100 0RF Rx Instructions: apply to single shoulder No Action aspirin [Baby Aspirin] 81 mg Tablet,Chewable 81 mg PO DAILY rosuvastatin 40 mg tablet Xarelto 2.5 mg tablet metoprolol tartrate 25 mg Tablet 25 mg PO BID Follow-up/Referrals: PHYSICIAN,MASTER MOTORCYCLE TECHNICIAN [Primary Care Provider] - Time of Disposition: 11:09 Quality NIHSS Nursing Documentation ED NIHSS nursing documentation: reviewed/agree
[2024-02-24 10:52] VITALS: BP 111/80; PULSE 70; RESP 16; TEMP 36.4; O2SAT 99
== END 2024-02-24 11:18 | disposition home or self-care (01) ==
PROVIDERS: Emergency Provider Nurse Practitioner Family
DX: B35.4 Tinea corporis (principal); S61.217A Laceration without foreign body of left little finger without damage to nail, initial encounter; M25.511 Pain in right shoulder; F17.210 Nicotine dependence, cigarettes, uncomplicated; Z79.01 Long term (current) use of anticoagulants; Z79.82 Long term (current) use of aspirin; Z79.899 Other long term (current) drug therapy; X58.XXXA Exposure to other specified factors, initial encounter
CPT/HCPCS: 99213; G0463

== ENCOUNTER 2024-05-19 19:59 | Inpatient (IN) | payer OTHER, SELFPAY ==
[2024-05-19] VITALS (7 sets, daily range): BP systolic 123–161; BP diastolic 81–92; PULSE 71–90; RESP 15–22; TEMP 36.4–37.1; O2SAT 90–100; BMI 28.8
--- NOTE | ~2024-05-19 | XR_ITS ---
CHEST RADIOGRAPH CLINICAL HISTORY: chest pain . COMPARISON: 05/04/2019 TECHNIQUE: Single portable view of the chest. FINDINGS Sternal wires and mediastinal clips are identified, the wires are midline and intact. The remainder of the cardiomediastinal silhouette is otherwise unremarkable. Increased interstitial markings are identified bilaterally, findings suggesting mild pulmonary vascul ar congestion. The lungs are otherwise clear. IMPRESSION: Mild pulmonary vascular congestion, without focal infiltrate or effusion. Reviewed, dictated and finalized at location A. [employer] PHOTOGRAPHER
--- OUTSIDE RECORDS SUMMARY | 2024-05-19 20:01 | XMS_ITS | Clinical Summary ---
Author Organization [facility] Address [address] [place] [address] Care Team Providers Care Classification Inspector Name Role Phone Mikaela Orourke MD Primary Care Provider Social History Tobacco Use Types Packs/Day Years Used Date Smoking Tobacco: Never Assessed Sex and Gender Information Value Date Recorded Sex Assigned at Not on file Legal Sex Male 8:53 AM CDT Gender Identity Not on file Sexual Orientation Not on file Plan of Treatment Health Maintenance Due Date Last Done Comments Colorectal Cancer Screening Colonoscopy (10 Years) 1971 Annual Physical 08/15/1974 Hepatitis C 08/15/1989 Hepatitis B Vaccines (1 of 3 - 19+ 3-dose series) 08/15/1990 Zoster Vaccines (1 of 2) 08/15/2021 COVID-19 Vaccine ( - 2023-2 5 season) 2023 02/03/2021, 06/16/2020 Influenza Adult (#1) 2024 DTaP, Tdap and Td Vaccines ( 2 - Td or Tdap) 09/13/2033 09/14/2023 Pneumococcal Vaccine: Pediatrics (0 to 5 Years) and At-Risk Patients (6 to 64 Years) Aged Out 09/14/2023 No longer eligible b ased on patient's age to complete this topic Meningococcal B Vaccine Aged Out No l onger eligible based on patient's age to complete this topic Meningococcal Vaccine Aged Out No faviola nghia eligible based on patient's age to complete this topic RSV Immunizations Under 20 Months Aged Out No longer eligible b ased on patient's age to complete this topic Insurance [facility] Care Teams Classification Inspector Relationship Specialty Start Date End Date Mikaela Orourke MD [address] [place] [address] PCP - General SPORTS MEDICINE 11/05/23
--- OUTSIDE RECORDS SUMMARY | 2024-05-19 20:01 | XMS_ITS | Clinical Summary ---
Author Organization [facility] Address [address] [place] [address] Care Team Providers Care Building Maintenance Engineer Name Role Phone Mikaela Orourke MD Primary Care Provider No, Physician Unavailable Rudy Miles MD Unavailable [phone] Reilly Snell MD Unavailable [phone] Torito Pierce MD Unavailable [phone] Allergies Active Allergy Reactions Criticality Noted Date Comments Nsaids (Non-Steroidal Anti-Inflammatory Drug) Other (See comments) Low 09/14/2023 Needs to avoided due to Hx of nephrectomy Apremilast Nausea & Vomiting Low 09/14/2023 Abdominal pain, nausea, vomiting Medications triamcinolone (KENALOG) 0.1 % creamIndications:Psoria sis APPLY TO THE AFFECTED AREA TWICE A DAY NEEDED, AVOID FACE AND GROIN, PULSE 2 WEEKS ON, 2 WEEKS OFF NEEDED 80 g 023 Active rivaroxaban (XARELTO) 2.5 mg tabletIndications:coron anastasia artery disease Take 1 tablet (2.5 mg total) by mouth 2 (two) times a day 180 tablet 3 024 2024 Active aspirin 81 mg chewable tablet TAKE 1 TABLET DAILY 90 tablet 3 024 Active mupirocin (BACTROBAN) 2 % ointmentIndications:Fol liculitis Apply topically 2 (two) times a day To folliculitis on chest for 1-2 weeks 22 g 1 Active rosuvastatin (CRESTOR) 40 mg tabletIndications:Coron anastasia artery disease involving karluk coronary artery of karl[place] heart without angina pectoris,Pure hypercholesterolemia TAKE 1 TABLET DAILY 90 tablet 3 024 Active metoprolol tartrate (LOPRESSOR) 25 mg immediate release tabletIndications:S/P coronary artery bypass graft x 2 TAKE 1 TABLET TWICE A DAY 200 tablet Active Active Problems Problem Noted Date Diagnosed Date S/p nephrectomy 09/14/2023 IGT (impaired glucose tolerance) 09/14/2023 Stage 3a chronic kidney disease (CKD) 04/16/2023 Assessment & Plan (09/14/2023 8:42 AM CDT): Chronic. Status post prior nephrectomy for renal cell cancer. Avoid NSAIDs and dehydration. Psoriatic arthritis 03/15/2023 Assessment & Plan (09/14/2023 8:41 AM CDT): Chronic. Symptoms wax and wane. Follows Rheumatology. Currently monitoring off treatment given intolerance to Otezla and inadequate response to Humira. Encouraged him to follow up with his city comptroller Assessment & Plan (03/15/2023 9:47 AM TAX COMPLIANCE REPRESENTATIVE): Diagnosed in the past year. Seeing Rheumatology. Plans to start on Humira. Avoid NSAIDs due to renal injury falling his right renal cell carcinoma surgery History of renal cell cancer 11/02/2022 Assessment & Plan (09/14/2023 8:44 AM CDT): Status post radical right nephrectomy. He has been surgically cured. Still follows with urologic surgeon yearly. Needs to avoid NSAIDs given history of nephrectomy and CKD Assessment & Plan (03/15/2023 9:47 AM TAX COMPLIANCE REPRESENTATIVE): Status post radical right nephrectomy. Surgically cured Cardiomyopathy, ischemic 08/07/2022 Assessment & Plan (09/14/2023 8:43 AM CDT): Chronic. Compensated. Continue metoprolol, Xarelto. Continue risk factor modification. 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 No longer seeing pain management for his musculoskeletal issues Assessment & Plan (03/15/2023 9:46 AM TAX COMPLIANCE REPRESENTATIVE): Chronic. Currently remains off narcotics. Does have pain management specialists. It is now seeing rheumatology for psoriatic arthritis Chronic pain syndrome 06/09/2022 Assessment & Plan (09/14/2023 8:43 AM CDT): Chronic. A degree of this is likely due to psoriatic arthritis. Patient is just going to monitor for now. Recommend Tylenol for pain. Should avoid NSAIDs. He does not plan to follow up with the pain management doctor anymore Assessment & Plan (03/15/2023 9:46 AM TAX COMPLIANCE REPRESENTATIVE): Chronic. Seeing rheumatology for psoriatic arthritis. Has seen pain management. Plaque psoriasis 06/09/2022 Assessment & Plan (09/14/2023 8:41 AM CDT): Chronic. Mild rash noted on extensor surfaces of his knees and hands. Sees Rheumatology. Currently off treating Assessment & Plan (03/15/2023 9:47 AM TAX COMPLIANCE REPRESENTATIVE): Chronic. Is about to start disease modifying agents with Rheumatology Pure hypercholesterolemia 06/09/2022 Assessment & Plan (09/14/2023 8:41 AM CDT): Chronic. Tolerates rosuvastatin. Targeting LDL at least less than 70. LDL goal. Continue current medication Resulted in the Past 12 Months 04/16/23 0800 CHOL 118 TRIG 77 HDL 47 LDLCALC 56 Assessment & Plan (03/15/2023 9:46 AM TAX COMPLIANCE REPRESENTATIVE): Chronic. Tolerates cholesterol medication. Check updated levels. LDL goal less than 70 Tobacco use 06/09/2022 Assessment & Plan (09/14/2023 8:42 AM CDT): Chronic. Needs to quit. Counseling provided in office today. Patient is not yet ready. Discussed recommendation for pneumococcal vaccine due to smoking and heart disease history. He agrees to this today. Discussed lung cancer screening CT. He defers for now. Quit resources were provided Assessment & Plan (03/15/2023 9:46 AM TAX COMPLIANCE REPRESENTATIVE): Chronic. Counseled to quit. Reviewed health risk S/P coronary artery bypass graft x 2 06/09/2022 Assessment & Plan (09/14/2023 8:41 AM CDT): Chronic. Continue risk factor modification with ASA, high-intensity statin, xarelto Assessment & Plan (03/15/2023 9:46 AM TAX COMPLIANCE REPRESENTATIVE): Chronic. Denies chest pain. Continue risk factor modification Coronary artery disease invo lving karluk coronary artery of karluk heart without angina pectoris 05/04/2022 Assessment & Plan (09/14/2023 8:40 AM CDT): Chronic. Denies chest pain. Continue risk factor modification with high- intensity statin, aspirin and Xarelto. Counseled to stop smoking Assessment & Plan (03/15/2023 9:45 AM TAX COMPLIANCE REPRESENTATIVE): Chronic. Denies chest pain or chest pain equivalent. Continue risk factor modification. Sees cardiology. Needs updated cholesterol. LDL goal less than 70 Resolved Problems Problem Noted Date Diagnosed Date Resolved Date Renal insufficiency 03/15/2023 09/14/19 24 Assessment & Plan (03/15/2023 9:47 AM TAX COMPLIANCE REPRESENTATIVE): New onset following right nephrectomy for RCC. Was seen by Nephrology in the hospital but has not had any follow-up evaluation. Check renal function. Avoid NSAIDs. If persistent significant kidney injury then have him see Nephrology for further evaluation Bilateral leg cramps 11/20/2022 023 Right renal mass 10/02/2022 03/15/2023 Overview (10/21/2022): Seeing urology Dr. Montejo. Renal flow and function scan shows symmetric bilateral kidney function 10/16/22 Hyperlipidemia LDL goal <70 08/07/2022 09/14/2023 Immunizations Name Administration Dates Next Due Influenza, Unspecified 04/12/2023(Deferr ed: Patient Refused),04/12/2022(Deferred: Patient Refused) Pneumococcal Conjugate Pcv20 09/14/2023 Tdap 09/14/2023 Surgical History Surgery Date Site/Laterality Comments KNEE ARTHROSCOPY W/ LATERAL RELEASE 2003 CORONARY ARTERY BYPASS GRAFT 05/04 NEPHRECTOMY RADICAL 10/10/2022 - 11/09/2022 Right For clear cell renal carcinoma and renal cyst. Medical History Medical History Date Comments GERD (gastroesophageal reflux disease) Arthritis Heart disease Psoriasis 1990 Kidney stone 2008 HLD (hyperlipidemia) Coronary artery disease Clear cell renal cell carcinoma (HCC) s/p nephrectomy Staph infection Affected neck, a pprox 06/2023. Treated by Dr. Milligan. Chickenpox Family History Medical History Relation Name Comments Early Brother 1 Eleuterio Cardiomyopathy Brother 3 Cardiomyopath y; Cause of : Cardiomyopathy Arthritis Father Juan Early Father Juan Heart attack Father Juan Arthritis Maternal Grandfather Richard Arthritis Maternal Grandmother Amira Arthritis Mother Juanita Dementia Mother Juanita Arthritis Paternal Grandfather Juvenal Early Paternal Grandfather Juvenal Heart attack Paternal Grandfather Juvenal Arthritis Paternal Grandmother Sonia Relation Name Status Comments Brother 1 Eleuterio Brother 2 (Age 25) Brother 3 Father Juan Maternal Grandfather Richard Maternal Grandmother Amira Mother Juanita Paternal Grandfather Juvenal Paternal Grandmother Sonia Social History Tobacco Use Types Packs/Day Years Used Date Smoking Tobacco: Every Day Cigarettes 1.4 38.1 Started: 1986 Smokeless Tobacco: Never Tobacco Cessation:Ready to Q uit: No; Counseling Given: Yes Alcohol Use Standard Drinks/Week Comments No 0 (1 standard drink = 0.6 oz pur e alcohol) OASIS D0700: Social Isolation Answer Da te Recorded Frequency of experiencing loneliness or isolatio n Never 05/11/2022 Social Connection and Isolation Panel [NHANES] A nswer Date Recorded In a typical week, how many times do you talk on the phone with family, friends, or neighbors? Twice a week 05/07/2022 How often do you get together with friends or re latives? Twice a week 05/07/2022 How often do you attend moravian or confucianist serv ices? Never 05/07/2022 Do you belong to any clubs o r organizations such as moravian groups, unions, fraternal or athletic groups, or school groups? No 05/07/2022 How often do you attend meet ings of the clubs or organizations you belong to? Never 05/07/2022 Are you , , di vorced, , never , or living with a partner? 05/07/2022 AUDIT-C Answer Date Recorded Q1: How often do you have a drink containing alcohol? Never 07/08/2022 Q2: How many drinks containi ng alcohol do you have on a typical day when you are drinking? Patient does not drink Frequency of Binge Drinking Not on file 06/11 Overall Financial Resource Strain (CARDIA) Answe r Date Recorded How hard is it for you to pa y for the very basics like food, housing, medical care, and heating? Somewhat hard 05/07/2022 PHQ-2 Answer Date Recorded PHQ-2 Total Score (If total score is 3 or more points, staff should administer the PHQ-9) 0 09/14/2023 PRAPARE - Transportation Answer Date Re corded In the past 12 months, has l ack of transportation kept you from medical appointments or from getting medications? No 04/13 In the past 12 months, has l ack of transportation kept you from meetings, work, or from getting things needed for daily living? No 05/07/2022 Personal Safety Answer Date Recorded Have you ever been in or are you currently in a harmful physical or emotional relationship or is someone making you feel afraid or unsafe? Denies 11/02/2022 Sex and Gender Information Value Date Recorded Sex Assigned at Not on file Legal Sex Male 12:55 PM TAX COMPLIANCE REPRESENTATIVE Gender Identity Male 06/08/2022 8:48 PM TAX COMPLIANCE REPRESENTATIVE Sexual Orientation Not on file Obstetrics History Last Filed Vital Signs Vital Sign Reading Time Taken Comments Blood Pressure 104/70 12/03/2023 10:29 AM CDT Pulse 68 12/03/2023 10:29 AM CDT Temperature 36.6 C (97.9 F) 11/04/2022 12:34 PM CDT Respiratory Rate 16 12/03/2023 10:29 AM CDT Oxygen Saturation 96% 05/25/2023 10:30 AM TAX COMPLIANCE REPRESENTATIVE Inhaled Oxygen Concentration - - Weight 93 kg (205 lb) 12/03/2023 10:29 AM CDT Height 188 cm (6' 2 ) 12/03/2023 10:29 AM CDT Body Mass Index 26.32 12/03/2023 10:29 AM CDT Plan of Treatment Health Maintenance Due Date Last Done Comments Colon Cancer Screening-Colonoscopy 1971 Hepatitis C Screening 1971 Hepatitis B Screening 08/15/1989 Zoster Vaccine (1 of 2) 08/15/1990 Covid-19 Vaccine (3 - 2023-2 5 season) 2023 02/03/2021, 06/16/2020 Influenza Vaccine (#1) 2023 Lung Cancer Screening 08/23/2024 Postpo trent from 08/15/2021 (Patient declined, but will receive in the future) Depression Screening 09/13/2024 09/14/2023, 06/09/2022 Regular Well Visit/Exam 18-64 09/13/2024 09/14/2023 Prostate Cancer Screening-PSA 04/16/2025 04/16/2023 DTaP/Tdap/Td Vaccine (2 - Td or Tdap) 09/13/2033 09/14/2023 Pneumococcal vaccine <65 Completed 09/14/2023 Medical Devices Explanted Type Area Community Health Specialist Device Identifier Shelf Expiration Date Model / Serial / Lot [employer] Clip Endoscopic Ligation Chevron Heart Shaped Horizon [id number] - Sn/Fa - [id number] Explanted:Qty: 1 on 05/05/2022 at [facility] Clip N/A: Chest [employer] [id number] / N/FA / [employer] Weck Horizon 24 Cartridge Ligate Triangulate Cross Section Heart [id number] - Sn/A - [id number] Explanted:Qty: 1 on 05/05/2022 at [facility] Clip N/A: Sternum [employer] [id number] / N/A / Procedures Procedure Name Priority Date/Time Associated Diagnosis Comments PSA SCREEN Routine 04/16/2023 8:00 AM TAX COMPLIANCE REPRESENTATIVE Screening for prostate cancer from Last 3 Months or Most Recently Relevant to Health Maintenance Results * PSA screen (04/16/2023 8:00 AM TAX COMPLIANCE REPRESENTATIVE) PSA-Total 0.23 <=3.90 ng/mL MIGUELITO LOPEZ Comment: Interpretive Data AGE SEX REFERENCE INTERVAL 0 minutes-150 years Female None 0 minutes-49 years Male None 50-59 years Male 0-3.90 60-69 years Male 0-5.40 70-79 years Male 0-6.20 80-150 years Male 0-6.20 The Cindy PSA Total assay procedure was used. Results from different manufacturers or methods may not be comparable. Serial testing should be performed using the same method. Current interpretive data last revised 21. Blood 04/16/2023 8:00 AM TAX COMPLIANCE REPRESENTATIVE 04/16/2023 2:38 PM TAX COMPLIANCE REPRESENTATIVE Mikaela Orourke MD LAB BLOOD ORDERABLES F inal Result MIGUELITO [id number] Department [place] [address] from Last 3 Months or Most Recently Relevant to Health Maintenance Insurance [facility] PL[facility] PLUS Advance Directives For more information, please contact: [phone] * Full Code (Latest Code Status on File) Date Activated Date Inactivated Comments 11/02/2022 3:51 PM 11/04/2022 7:32 PM * Full Code Date Activated Date Inactivated Comments 05/04/2022 3:54 PM 05/08/2022 5:39 PM Care Teams Building Maintenance Engineer Relationship Specialty Start Date End Date Mikaela Orourke MD PCP - General Family Practice 06/09/22 No, Physician 05/04/22 Rudy Miles MD [address] [address] Referring Physician Cardiology 05/05/22 [place] [address] [place] [address] Consulting Physician Urology 11/04/22 [place] [address] [place] [address] Consulting Physician Nephrology 11/04/22
--- OUTSIDE RECORDS SUMMARY | 2024-05-19 20:01 | XMS_ITS | Referral Summary ---
Author Organization [facility] Address [address] [place] [address] Care Team Providers Care Beam Machine Operator Name Role Phone Mikaela Orourke MD Primary Care Provider No, Physician Unavailable Rudy Miles MD Unavailable [phone] Reilly Snell MD Unavailable [phone] Torito Pierce MD Unavailable [phone] Allergies Active Allergy Reactions Criticality Noted [...] 40 mg tabletIndications:Coron anastasia artery disease involving saxman coronary artery of saxman heart without angina pectoris,Pure hypercholesterolemia TAKE 1 [...] Encouraged him to follow up with his brief writer Assessment & Plan (03/15/2023 9:47 AM STRAIGHTEDGE WORKER): Diagnosed in the past year. Seeing Rheumatology. [...] CKD Assessment & Plan (03/15/2023 9:47 AM STRAIGHTEDGE WORKER): Status post radical right nephrectomy. Surgically cured Cardiomyopathy, ischemic 08/07/2022 Assessment & Plan (09/14/2023 8:43 AM CDT): Chronic. Compensated. Continue metoprolol, Xarelto. Continue risk factor modification. 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 06/09/2022 Assessment & Plan (09/14/2023 8:40 AM CDT): Remains in remission. No longer seeing pain management for his musculoskeletal issues Assessment & Plan (03/15/2023 9:46 AM STRAIGHTEDGE WORKER): Chronic. Currently remains off narcotics. Does have [...] anymore Assessment & Plan (03/15/2023 9:46 AM STRAIGHTEDGE WORKER): Chronic. Seeing rheumatology for psoriatic arthritis. Has seen pain management. Plaque psoriasis 06/09/2022 Assessment & Plan (09/14/2023 8:41 AM CDT): Chronic. Mild rash noted on extensor surfaces of his knees and hands. Sees Rheumatology. Currently off treating Assessment & Plan (03/15/2023 9:47 AM STRAIGHTEDGE WORKER): Chronic. Is about to start disease modifying agents with Rheumatology Pure hypercholesterolemia 06/09/2022 Assessment & Plan (09/14/2023 8:41 AM CDT): Chronic. Tolerates rosuvastatin. Targeting LDL at least less than 70. LDL goal. Continue current medication Resulted in the Past 12 Months 04/16/23 0800 CHOL 118 TRIG 77 HDL 47 LDLCALC 56 Assessment & Plan (03/15/2023 9:46 AM STRAIGHTEDGE WORKER): Chronic. Tolerates cholesterol medication. Check updated levels. [...] provided Assessment & Plan (03/15/2023 9:46 AM STRAIGHTEDGE WORKER): Chronic. Counseled to quit. Reviewed health risk S/P coronary artery bypass graft x 2 06/09/2022 Assessment & Plan (09/14/2023 8:41 AM CDT): Chronic. Continue risk factor modification with ASA, high-intensity statin, xarelto Assessment & Plan (03/15/2023 9:46 AM STRAIGHTEDGE WORKER): Chronic. Denies chest pain. Continue risk factor modification Coronary artery disease invo lving saxman coronary artery of saxman heart without angina pectoris 05/04/2022 Assessment & Plan (09/14/2023 8:40 AM CDT): Chronic. Denies chest pain. Continue risk factor modification with high- intensity statin, aspirin and Xarelto. Counseled to stop smoking Assessment & Plan (03/15/2023 9:45 AM STRAIGHTEDGE WORKER): Chronic. Denies chest pain or chest pain equivalent. Continue risk factor modification. Sees cardiology. Needs updated cholesterol. LDL goal less than 70 Resolved Problems Problem Noted Date Diagnosed Date Resolved Date Renal insufficiency 03/15/2023 09/14/19 24 Assessment & Plan (03/15/2023 9:47 AM STRAIGHTEDGE WORKER): New onset following right nephrectomy for RCC. [...] Refused) Pneumococcal Conjugate Pcv20 09/14/2023 Tdap 09/14/2023 Social History Tobacco Use Types Packs/Day Years [...] week 05/07/2022 How often do you attend yazdanism or mandaen serv ices? Never 05/07/2022 Do you belong to any clubs o r organizations such as yazdanism groups, unions, fraternal or athletic groups, or [...] on file Legal Sex Male 12:55 PM STRAIGHTEDGE WORKER Gender Identity Male 06/08/2022 8:48 PM STRAIGHTEDGE WORKER Sexual Orientation Not on file Last Filed Vital Signs Vital Sign Reading Time Taken Comments Blood Pressure 104/70 12/03/2023 10:29 AM CDT Pulse 68 12/03/2023 10:29 AM CDT Temperature 36.6 C (97.9 F) 11/04/2022 12:34 PM CDT Respiratory Rate 16 12/03/2023 10:29 AM CDT Oxygen Saturation 96% 05/25/2023 10:30 AM STRAIGHTEDGE WORKER Inhaled Oxygen Concentration - - Weight 93 kg (205 lb) 12/03/2023 10:29 AM CDT Height 188 cm (6' 2 ) 12/03/2023 10:29 AM CDT Body Mass Index 26.32 12/03/2023 10:29 AM CDT Plan of Treatment Not on file Medical Devices Explanted Type Area Mix Crusher Operator Device Identifier Shelf Expiration Date Model / Serial / Lot [employer] Clip Endoscopic Ligation Chevron Heart Shaped Horizon [id number] - Sn/Fa - [id number] Explanted:Qty: 1 on 05/05/2022 at [facility] Clip N/A: Chest [employer] [id number] / N/FA / [employer] Weck Horizon 24 Cartridge Ligate Triangulate Cross Section Heart [id number] - Sn/A - [id number] Explanted:Qty: 1 on 05/05/2022 at [facility] Clip N/A: Sternum [employer] [id number] / N/A / Procedures Procedure Name Priority Date/Time Associated Diagnosis Comments PSA SCREEN Routine 04/16/2023 8:00 AM STRAIGHTEDGE WORKER Screening for prostate cancer from Last 3 Months or Most Recently Relevant to Health Maintenance Results * PSA screen (04/16/2023 8:00 AM STRAIGHTEDGE WORKER) PSA-Total 0.23 <=3.90 ng/mL MIGUELITO LOPEZ Comment: [...] last revised 21. Blood 04/16/2023 8:00 AM STRAIGHTEDGE WORKER 04/16/2023 2:38 PM STRAIGHTEDGE WORKER Mikaela Orourke MD LAB BLOOD ORDERABLES F inal Result M[facility] [address] Department [place] [address] from Last 3 Months or Most Recently Relevant to Health Maintenance Insurance [facility] CHOICE PLUS Advance Directives For more information, please contact: [phone] * Full Code (Latest Code Status on File) Date Activated Date Inactivated Comments 11/02/2022 3:51 PM 11/04/2022 7:32 PM * Full Code Date Activated Date Inactivated Comments 05/04/2022 3:54 PM 05/08/2022 5:39 PM Care Teams Beam Machine Operator Relationship Specialty Start Date End Date Mikaela Orourke MD PCP - General Family Practice 06/09/22 No, Physician 05/04/22 Rudy Miles MD [address] [address] Referring Physician Cardiology 05/05/22 [place] [address] [place] [address] Consulting Physician Urology 11/04/22 [place] [address] [place] [address] Consulting Physician Nephrology 11/04/22
--- NOTE | 2024-05-19 20:03 | ECG_ITS ---
Test Date: 2024-05-19 20:06:39 Measurements Intervals [place] Rate: 69 P: 11 NE: 142 QRS: 82 QRSD: 115 T: 88 QT: 340 QTc: 365 Interpretive Statements SINUS RHYTHM INTRAVENTRICULAR CONDUCTION DELAY INFERIOR ST ELEVATION MYOCARDIAL INJURY- ACUTE POSTERIOR INFARCT- ACUTE RECIPROCAL ST DEPRESSION IN [facility] LATERAL LEADS ABNORMAL ECG No previous ECG available for comparison Electronically Signed On 05-20-2024 06:27:00 TERRAZZO TILE SETTER by Chino Mendez D.O.
[2024-05-19] MEDS: ONDANSETRON INJ 4 MG/2 ML VIAL (20:17)
[2024-05-19] MEDS: HYDROmorphone HCL INJ (*CRX) 1 MG/ML SYR (20:17)
--- NOTE | 2024-05-19 20:18 | PC.NURSE ---
Patient groin area shaved
[2024-05-19 20:19] LABS: Basophils Absolute Auto 0.1 K/mm3 (0.0-0.1); Basophils Percent Auto 0.4 % (0.2-1.2); Eosinophils Absolute Auto 0.2 K/mm3 (0-0.3); Eosinophils Percent Auto 1.9 % (0-4.4); Hematocrit 46.7 % (42.0-52.0); Immature Granulocyte Absolute 0.04 K/mm3 (0.00-0.031); Immature Granulocyte Percent A 0.3 % (0-0.5); Lymphocytes Absolute Auto 3.91 K/mm3 (0.9-3.2); Lymphocytes Percent Auto 32.2 % (18.3-44.2); Mean Corpuscular HGB Conc 34.3 g/dl (32-36); Mean Corpuscular Hemoglobin 33.3 pg (26-34); Mean Corpuscular Volume 97.3 fl (80-100); Mean Platelet Volume 9.2 fl (7.4-10.4); Monocytes Percent Auto 8.3 % (2.6-8.5); Neutrophils Absolute Auto 6.9 K/mm3 (1.3-6.7); Neutrophils Percent Auto 56.9 % (45.5-73.1); Platelet Count Result 213 k/mm3 (150-375); Red Cell Distribution Width 13.3 % (11.5-14.5); White Blood Count 12.2 K/mm3 (4.5-10.0)
[2024-05-19] MEDS: ASPIRIN 81 MG CHEWABLE TABLET 324 MG PO (20:21)
--- NOTE | 2024-05-19 20:21 | PC.NURSE ---
Crash cart at bedside, defib pads in place
--- OUTSIDE RECORDS SUMMARY | 2024-05-19 20:26 | XMS_ITS | Clinical Summary ---
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 Seeing Rheumatology. [...] CKD Assessment & Plan (03/15/2023 9:47 AM BLADE GRADER OPERATOR): Status post radical right nephrectomy. Surgically cured Cardiomyopathy, ischemic 08/07/2022 Assessment & Plan (09/14/2023 8:43 AM CDT): Chronic. Compensated. Continue metoprolol, Xarelto. Continue risk factor modification. 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 No longer seeing pain management for his musculoskeletal issues Assessment & Plan (03/15/2023 9:46 AM BLADE GRADER OPERATOR): Chronic. Currently remains off narcotics. Does have [...] anymore Assessment & Plan (03/15/2023 9:46 AM BLADE GRADER OPERATOR): Chronic. Seeing rheumatology for psoriatic arthritis. Has seen pain management. Plaque psoriasis 06/09/2022 Assessment & Plan (09/14/2023 8:41 AM CDT): Chronic. Mild rash noted on extensor surfaces of his knees and hands. Sees Rheumatology. Currently off treating Assessment & Plan (03/15/2023 9:47 AM BLADE GRADER OPERATOR): Chronic. Is about to start disease modifying agents with Rheumatology Pure hypercholesterolemia 06/09/2022 Assessment & Plan (09/14/2023 8:41 AM CDT): Chronic. Tolerates rosuvastatin. Targeting LDL at least less than 70. LDL goal. Continue current medication Resulted in the Past 12 Months 04/16/23 0800 CHOL 118 TRIG 77 HDL 47 LDLCALC 56 Assessment & Plan (03/15/2023 9:46 AM BLADE GRADER OPERATOR): Chronic. Tolerates cholesterol medication. Check updated levels. [...] provided Assessment & Plan (03/15/2023 9:46 AM BLADE GRADER OPERATOR): Chronic. Counseled to quit. Reviewed health risk S/P coronary artery bypass graft x 2 06/09/2022 Assessment & Plan (09/14/2023 8:41 AM CDT): Chronic. Continue risk factor modification with ASA, high-intensity statin, xarelto Assessment & Plan (03/15/2023 9:46 AM BLADE GRADER OPERATOR): Chronic. Denies chest pain. Continue risk factor modification Coronary artery disease invo lving omaha coronary artery of omaha heart without angina pectoris 05/04/2022 Assessment & Plan (09/14/2023 8:40 AM CDT): Chronic. Denies chest pain. Continue risk factor modification with high- intensity statin, aspirin and Xarelto. Counseled to stop smoking Assessment & Plan (03/15/2023 9:45 AM BLADE GRADER OPERATOR): Chronic. Denies chest pain or chest pain equivalent. Continue risk factor modification. Sees cardiology. Needs updated cholesterol. LDL goal less than 70 Resolved Problems Problem Noted Date Diagnosed Date Resolved Date Renal insufficiency 03/15/2023 09/14/19 24 Assessment & Plan (03/15/2023 9:47 AM BLADE GRADER OPERATOR): New onset following right nephrectomy for RCC. [...] week 05/07/2022 How often do you attend religious or temple serv ices? Never 05/07/2022 Do you belong to any clubs o r organizations such as religious groups, unions, fraternal or athletic groups, or [...] on file Legal Sex Male 12:55 PM BLADE GRADER OPERATOR Gender Identity Male 06/08/2022 8:48 PM BLADE GRADER OPERATOR Sexual Orientation Not on file Obstetrics History Last Filed Vital Signs Vital Sign Reading Time Taken Comments Blood Pressure 104/70 12/03/2023 10:29 AM CDT Pulse 68 12/03/2023 10:29 AM CDT Temperature 36.6 C (97.9 F) 11/04/2022 12:34 PM CDT Respiratory Rate 16 12/03/2023 10:29 AM CDT Oxygen Saturation 96% 05/25/2023 10:30 AM BLADE GRADER OPERATOR Inhaled Oxygen Concentration - - Weight 93 [...] Completed 09/14/2023 Medical Devices Explanted Type Area Milk Drying Machine Operator Device Identifier Shelf Expiration Date Model / Serial / Lot [employer] Clip Endoscopic Ligation Chevron Heart Shaped Horizon [id number] - Sn/Fa - [id number] Explanted:Qty: 1 on 05/05/2022 at [facility] Clip N/A: Chest [employer] [id number] / N/FA / [employer] Weck Horizon 24 Cartridge Ligate Triangulate Cross Section Heart [id number] - Sn/A - [id number] Explanted:Qty: 1 on 05/05/2022 at [facility] Clip N/A: Sternum [employer] [id number] / N/A / Procedures Procedure Name Priority Date/Time Associated Diagnosis Comments PSA SCREEN Routine 04/16/2023 8:00 AM BLADE GRADER OPERATOR Screening for prostate cancer from Last 3 Months or Most Recently Relevant to Health Maintenance Results * PSA screen (04/16/2023 8:00 AM BLADE GRADER OPERATOR) PSA-Total 0.23 <=3.90 ng/mL MIGUELITO LOPEZ Comment: [...] last revised 21. Blood 04/16/2023 8:00 AM BLADE GRADER OPERATOR 04/16/2023 2:38 PM BLADE GRADER OPERATOR Mikaela Orourke MD LAB BLOOD ORDERABLES F inal Result MIGUELITO [id number] Department [place] [address] from Last 3 Months or Most Recently Relevant to Health Maintenance Insurance [facility] CHOICE PLUS [facility] CHOICE PLUS Advance Directives For more information, please contact: [phone] * Full Code (Latest Code Status on File) Date Activated Date Inactivated Comments 11/02/2022 3:51 PM 11/04/2022 7:32 PM * Full Code Date Activated Date Inactivated Comments 05/04/2022 3:54 PM 05/08/2022 5:39 PM Care Teams Gallery Host Relationship Specialty Start Date End Date Mikaela Orourke MD PCP - General Family Practice 06/09/22 No, Physician 05/04/22 Rudy Miles MD [address] [address] Referring Physician Cardiology 05/05/22 [place] [address] [place] [id number] Consulting Physician Urology 11/04/22 [place] [address] [place] [id number] Consulting Physician Nephrology 11/04/22
--- OUTSIDE RECORDS SUMMARY | 2024-05-19 20:26 | XMS_ITS | Clinical Summary ---
Author Organization [facility] Address [address] [place] [address] Care Team Providers Care Coach Tour Driver Name Role Phone Mikaela Orourke MD Primary [...] patient's age to complete this topic Insurance [facility] Care Teams Coach Tour Driver Relationship Specialty Start Date End Date Mikaela Orourke MD [address] [place] [address] PCP - General SPORTS MEDICINE 11/05/23
--- OUTSIDE RECORDS SUMMARY | 2024-05-19 20:26 | XMS_ITS | Referral Summary ---
Author Organization [facility] Address [address] [place] [address] Care Team Providers Care Booking Officer Name Role Phone Mikaela Orourke MD Primary Care Provider No, Physician Unavailable Rudy Miles MD Unavailable [phone] Reilly Snell MD Unavailable [phone] Torito Pierce MD Unavailable [phone] Allergies Active Allergy Reactions Criticality Noted [...] 40 mg tabletIndications:Coron anastasia artery disease involving sycuan coronary artery of sycuan heart without angina pectoris,Pure hypercholesterolemia TAKE 1 [...] Encouraged him to follow up with his zoogler Assessment & Plan (03/15/2023 9:47 AM BULK PIGMENT REDUCER): Diagnosed in the past year. Seeing Rheumatology. [...] CKD Assessment & Plan (03/15/2023 9:47 AM BULK PIGMENT REDUCER): Status post radical right nephrectomy. Surgically cured Cardiomyopathy, ischemic 08/07/2022 Assessment & Plan (09/14/2023 8:43 AM CDT): Chronic. Compensated. Continue metoprolol, Xarelto. Continue risk factor modification. 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 No longer seeing pain management for his musculoskeletal issues Assessment & Plan (03/15/2023 9:46 AM BULK PIGMENT REDUCER): Chronic. Currently remains off narcotics. Does have [...] anymore Assessment & Plan (03/15/2023 9:46 AM BULK PIGMENT REDUCER): Chronic. Seeing rheumatology for psoriatic arthritis. Has seen pain management. Plaque psoriasis 06/09/2022 Assessment & Plan (09/14/2023 8:41 AM CDT): Chronic. Mild rash noted on extensor surfaces of his knees and hands. Sees Rheumatology. Currently off treating Assessment & Plan (03/15/2023 9:47 AM BULK PIGMENT REDUCER): Chronic. Is about to start disease modifying agents with Rheumatology Pure hypercholesterolemia 06/09/2022 Assessment & Plan (09/14/2023 8:41 AM CDT): Chronic. Tolerates rosuvastatin. Targeting LDL at least less than 70. LDL goal. Continue current medication Resulted in the Past 12 Months 04/16/23 0800 CHOL 118 TRIG 77 HDL 47 LDLCALC 56 Assessment & Plan (03/15/2023 9:46 AM BULK PIGMENT REDUCER): Chronic. Tolerates cholesterol medication. Check updated levels. [...] provided Assessment & Plan (03/15/2023 9:46 AM BULK PIGMENT REDUCER): Chronic. Counseled to quit. Reviewed health risk S/P coronary artery bypass graft x 2 06/09/2022 Assessment & Plan (09/14/2023 8:41 AM CDT): Chronic. Continue risk factor modification with ASA, high-intensity statin, xarelto Assessment & Plan (03/15/2023 9:46 AM BULK PIGMENT REDUCER): Chronic. Denies chest pain. Continue risk factor modification Coronary artery disease invo lving sycuan coronary artery of sycuan heart without angina pectoris 05/04/2022 Assessment & Plan (09/14/2023 8:40 AM CDT): Chronic. Denies chest pain. Continue risk factor modification with high- intensity statin, aspirin and Xarelto. Counseled to stop smoking Assessment & Plan (03/15/2023 9:45 AM BULK PIGMENT REDUCER): Chronic. Denies chest pain or chest pain equivalent. Continue risk factor modification. Sees cardiology. Needs updated cholesterol. LDL goal less than 70 Resolved Problems Problem Noted Date Diagnosed Date Resolved Date Renal insufficiency 03/15/2023 09/14/19 24 Assessment & Plan (03/15/2023 9:47 AM BULK PIGMENT REDUCER): New onset following right nephrectomy for RCC. [...] week 05/07/2022 How often do you attend confucianist or gnosticism serv ices? Never 05/07/2022 Do you belong to any clubs o r organizations such as confucianist groups, unions, fraternal or athletic groups, or [...] on file Legal Sex Male 12:55 PM BULK PIGMENT REDUCER Gender Identity Male 06/08/2022 8:48 PM BULK PIGMENT REDUCER Sexual Orientation Not on file Last Filed Vital Signs Vital Sign Reading Time Taken Comments Blood Pressure 104/70 12/03/2023 10:29 AM CDT Pulse 68 12/03/2023 10:29 AM CDT Temperature 36.6 C (97.9 F) 11/04/2022 12:34 PM CDT Respiratory Rate 16 12/03/2023 10:29 AM CDT Oxygen Saturation 96% 05/25/2023 10:30 AM BULK PIGMENT REDUCER Inhaled Oxygen Concentration - - Weight 93 kg (205 lb) 12/03/2023 10:29 AM CDT Height 188 cm (6' 2 ) 12/03/2023 10:29 AM CDT Body Mass Index 26.32 12/03/2023 10:29 AM CDT Plan of Treatment Not on file Medical Devices Explanted Type Area Management Lead Device Identifier Shelf Expiration Date Model / Serial / Lot [employer] Clip Endoscopic Ligation Chevron Heart Shaped Horizon [id number] - Sn/Fa - [id number] Explanted:Qty: 1 on 05/05/2022 at [facility] Clip N/A: Chest [employer] [id number] / N/FA / [employer] Weck Horizon 24 Cartridge Ligate Triangulate Cross Section Heart [id number] - Sn/A - [id number] Explanted:Qty: 1 on 05/05/2022 at [facility] Clip N/A: Sternum [employer] [id number] / N/A / Procedures Procedure Name Priority Date/Time Associated Diagnosis Comments PSA SCREEN Routine 04/16/2023 8:00 AM BULK PIGMENT REDUCER Screening for prostate cancer from Last 3 Months or Most Recently Relevant to Health Maintenance Results * PSA screen (04/16/2023 8:00 AM BULK PIGMENT REDUCER) PSA-Total 0.23 <=3.90 ng/mL MIGUELITO LOPEZ Comment: [...] last revised 21. Blood 04/16/2023 8:00 AM BULK PIGMENT REDUCER 04/16/2023 2:38 PM BULK PIGMENT REDUCER Mikaela Orourke MD LAB BLOOD ORDERABLES F inal Result M[facility] [address] [place] [address] from Last 3 Months or Most Recently Relevant to Health Maintenance Insurance [facility] CHOICE PLUS Advance Directives For more information, please contact: [phone] * Full Code (Latest Code Status on File) Date Activated Date Inactivated Comments 11/02/2022 3:51 PM 11/04/2022 7:32 PM * Full Code Date Activated Date Inactivated Comments 05/04/2022 3:54 PM 05/08/2022 5:39 PM Care Teams Booking Officer Relationship Specialty Start Date End Date Mikaela Orourke MD PCP - General Family Practice 06/09/22 No, Physician 05/04/22 Rudy Miles MD [address] [address] Referring Physician Cardiology 05/05/22 [place] [address] [place] [id number] Consulting Physician Urology 11/04/22 [place] [address] [place] [address] Consulting Physician Nephrology 11/04/22
[2024-05-19 20:30] LABS: INR 0.9; Prothrombin Time 12.3 Seconds (11.1-14.7)
[2024-05-19] MEDS: HEPARIN SODIUM 5,000 UNITS/ML VIAL 4000 UNITS IV PUSH (20:30)
[2024-05-19] MEDS: HYDROmorphone HCL INJ (*CRX) 1 MG/ML SYR 0.5 MG IV PUSH ×2 (20:31→20:55)
[2024-05-19 20:37] LABS: Alanine Aminotransferase 60 U/L (6-50); Albumin Level 4.4 g/dL (3.5-5.1); Alkaline Phosphatase 113 U/L (38-126); Anion Gap 11 mmol/L (4-12); Aspartate Amino Transferase 34 U/L (17-59); Bilirubin,Total 0.6 mg/dL (0.2-1.3); Blood Urea Nitrogen 16 mg/dL (9-20); Calcium 9.1 mg/dL (8.4-10.2); Carbon Dioxide 22 mmol/L (22-30); Chloride 106 mmol/L (98-107); Estimated CRCL calculation 54 ml/min; Estimated Glomerular Filt Rate 44; Glucose 129 mg/dL (65-110); Lipase 123 U/L (23-300); Potassium 3.6 mmol/L (3.4-5.0); Sodium 139 mmol/L (137-145)
[2024-05-19 20:49] LABS: Troponin I 0.021 ng/mL (0.000-0.034)
--- NOTE | 2024-05-19 21:00 | ED_ITS ---
HPI - Chest Pain General Chief Complaint: Chest Pain Stated Complaint: chest pain Time Seen by Provider: 05/19/24 20:08 History of Present Illness HPI narrative: 53-year-old male with a past medical history including previous coronary disease with CABG that was done 2 years ago at [place]. Presents to the emergency department today with crushing substernal chest pain radiating towards his left side arm. Was in the shower when this happened associated with some nausea. No radiation to his abdomen or back. Feels like his last time he had a heart attack. Presents to the ED very diaphoretic and clutching his chest and pain. EKG obtained in triage shows a STEMI and he was brought back to room 1 for a STEMI and medical resuscitation activation. he took his rivaroxaban this morning in addition to all his other medications. He is endorsing 10 attend crushing chest pain. No difficulty in breathing. No history of aortic process to his knowledge. Related Data Home Medications ?Medication ?Instructions ?Recorded ?Confirmed ?Last Taken ?Type aspirin 81 mg chewable tablet 81 mg PO DAILY 02/24/24 02/24/24 Unknown History metoprolol tartrate 25 mg tablet 25 mg PO BID 02/24/24 02/24/24 Unknown History rivaroxaban 2.5 mg tablet (Xarelto) mg 02/24/24 02/24/24 Unknown History rosuvastatin 40 mg tablet mg 02/24/24 Unknown History Allergies Allergy/AdvReac Type Severity Reaction Status Date / Time No Known Allergies Allergy Verified 02/24/24 10:45 Review of Systems 2 Review of Systems: as reviewed above in HPI [facility] Past Medical History Medical History Vitamin D deficiency Secondary polycythemia Due to testosterone therapy Hypogonadism in male No longer receiving testosterone therapy since approximately 2018 Psoriasis Rib fractures Right hand fracture Kidney stones GERD (gastroesophageal reflux disease) Surgical History Surgical History History of meniscectomy of left knee Family History Family History Father Myocardial infarct CAD (coronary artery disease) of artery bypass graft Sibling Diabetes mellitus Cardiomyopathy Social History Social History Social History: He has been since proximally 2002. They have 2 children ages 17 and 19. 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 He has smoked as much as 1.5 packs per cigarettes since he was a teenager. He denies any significant alcohol or illicit substance use. Code status: Full code Surrogate decision maker: Smoking packs per day: 1 Smoking cigarettes per day: 20.0 Years smoked: 36 Smoking pack-years: 36.00 Smoking status: Current every day smoker Tobacco type: cigarettes Second hand tobacco smoke exposure: Yes Smoking end date: 07/21/22 Additional smoking assessment comments: states 1- 1-1/2pkg's Alcohol intake: never Substance use: never Lack of Transportation: No Lack of Food: Never True Current Housing: I Have Housing Concerned About Future Housing: No Difficulty Paying Gas/Electric Bills: No Difficulty Paying for Meds: No Currently Unemployed: No Education: High School Diploma/GED Difficulty w/ Childcare or Family Care: No Spiritual care concerns: No Exam 2 Narrative: GENERAL: very uncomfortable and ill appearing, diaphoretic, awake and answering questions HEAD: [Normocephalic, atraumatic.] EYES: [PERRLA and EOMI.] ENT: Nares clear, no rhinorrhea or epistaxis. Mucous membranes moist. NECK: Supple. CHEST: Clear to auscultation. No respiratory distress. Previous sternotomy scar appears intact without any dehiscence or evidence of infection. HEART: [Regular rate and rhythm]. No murmur heard. [Normal peripheral pulses.] ABDOMEN: [Soft, nondistended], [nontender], [No rigidity or guarding] EXTREMITIES: Normal range of motion. [No edema.] SKIN: Warm, dry, no rash. NEURO: [No focal deficits]. Alert and oriented [x3.] PSYCH: [Normal mood and affect.] Course Vital Signs Vital signs: Vital Signs Temperature 36.4 C 05/19/24 20:02 Pulse Rate 72 05/19/24 20:02 Respiratory Rate 22 H 05/19/24 20:02 Blood Pressure 161/85 H 05/19/24 20:02 Pulse Oximetry 100 05/19/24 20:02 Oxygen Delivery Room Air 05/19/24 20:02 Temperature 36.4 C 05/19/24 20:02 Pulse Rate 79 05/19/24 20:22 Respiratory Rate 16 05/19/24 20:22 Blood Pressure 144/92 H 05/19/24 20:22 Pulse Oximetry 95 05/19/24 20:22 Oxygen Delivery Room Air 05/19/24 20:23 MDM - Chest Pain MDM Narrative Medical decision making narrative: 53-year-old male presenting with crushing substernal chest pain, history of coronary disease with a CABG 2 years prior. very diaphoretic, uncomfortable appearing with 10/10 crushing chest pain. Took his Xarelto and aspirin /rosuvastatin this morning. blood pressure mildly elevated 161/85, no tachycardia but is tachypneic at 22, no hypoxia or fever. EKG obtained in triage which shows STEMI. He was brought back for STEMI activation. Immediately called the on-call reel tender Dr. Rosales and made them aware what appears to be an inferior septal ND on the EKG and we went over plan of care for STEMI and optical laboratory manager with for that he needs of heparin initiation and aspirin. Patient did receive multiple doses of dilaudid with mild improvement his symptoms and pain. Will hold off on nitroglycerin given the inferior appearance of his ND and potential hypotension. patient was re- evaluated while here in the emergency department his pain is slowly improving, blood pressure improving. quality control lab technician has arrived and patient was taken upstairs for left heart catheterization and further interventions from there. Spoke at length with all the family members and the patient and patient remains stable upon transfer from the ED. Medical Records Data Attestation: I reviewed the patient's medical records. Lab Data Attestation: I reviewed the patient's lab results. 05/19/24 20:15 05/19/24 20:15 Labs: Lab Results 05/19/24 Range/Units 20:15 WBC 12.2 H (4.5-10.0) K/mm3 RBC 4.80 (4.6-6.20) M/mm3 Hgb 16.0 (14.0-18.0) g/dL Hct 46.7 (42.0-52.0) % MCV 97.3 (80-100) fl MCH 33.3 (26-34) pg MCHC 34.3 (32-36) g/dl RDW 13.3 (11.5-14.5) % Plt Count 213 (150-375) k/mm3 MPV 9.2 (7.4-10.4) fl Immature Gran % (Auto) 0.3 (0-0.5) % Neut % (Auto) 56.9 (45.5-73.1) % Lymph % (Auto) 32.2 (18.3-44.2) % [place] % (Auto) 8.3 (2.6-8.5) % Eos % (Auto) 1.9 (0-4.4) % Baso % (Auto) 0.4 (0.2-1.2) % Lymph # (Auto) 3.91 H (0.9-3.2) K/mm3 [place] # (Auto) 1.0 H (0.1-0.6) K/mm3 Eos # (Auto) 0.2 (0-0.3) K/mm3 Baso # (Auto) 0.1 (0.0-0.1) K/mm3 Abs Immat Gran (auto) 0.04 H (0.00-0.031) K/mm3 Absolute Neuts (auto) 6.9 H (1.3-6.7) K/mm3 Absolute Nucleated RBC 0.000 (0.0-0.012) K/mm3 Nucleated RBC % 0.0 (0.0-0.2) % PT 12.3 (11.1-14.7) Seconds INR 0.9 APTT 29.0 (22.3-36.8) Seconds Sodium 139 (137-145) mmol/L Potassium 3.6 (3.4-5.0) mmol/L Chloride 106 (98-107) mmol/L Carbon Dioxide 22 (22-30) mmol/L Anion Gap 11 (4-12) mmol/L BUN 16 (9-20) mg/dL Creatinine 1.65 H (0.7-1.3) mg/dL Estim Creat Clear Calc 54 ml/min Estimated GFR 44 L (59 - ) Glucose 129 H (65-110) mg/dL Calcium 9.1 (8.4-10.2) mg/dL Total Bilirubin 0.6 (0.2-1.3) mg/dL AST 34 (17-59) U/L ALT 60 H (6-50) U/L Alkaline Phosphatase 113 (38-126) U/L Troponin I 0.021 (0.000-0.034) ng/mL Total Protein 7.0 (6.3-8.2) g/dL Albumin 4.4 (3.5-5.1) g/dL Lipase 123 (23-300) U/L Imaging Data Attestation: I personally reviewed and interpreted this imaging study as follows: My impression: IMPRESSION: Mild pulmonary vascular congestion, without focal infiltrate or effusion. ECG Data EKG #1: Attestation: I personally reviewed and interpreted this ECG as follows: ECG completion date: 05/19/24 ECG completion time: 20:06 Prior ECG tracings: available for review Ischemic changes: acute STEMI Interpretation: ST segment elevations in leads 2 3 and AVF, reciprocal depressions in leads V1, V2 and V3. Appears to be inferior septal and myocardial infarction with acute STEMI. Compared to previous EKG from 2022 these are new interval changes from his cardiac activity. Normal QTC interval, normal rate rhythm an axis, overall interpretation, acute inferior septal STEMI Critical Care Time Critical Care Time Critical Care Time: Yes Total Critical Care Time: 35 Discharge Plan Discharge Clinical Impression: ST elevation (STEMI) myocardial infarction, History of coronary artery bypass graft Patient Disposition: Still a Patient Condition: Serious Time of Disposition: 21:15
--- NOTE | 2024-05-19 22:36 | WPDMODSED ---
Moderate Sedation Note-Pt Data Patient Data Diagnosis: Inferior STEMI Present Complaint: chest pain Procedure to be performed/Plan: coronary angiogram Allergies Allergy/AdvReac Type Severity Reaction Status Date / Time No Known Allergies Allergy Verified 02/24/24 10:45 Home Medications ?Medication ?Instructions ?Recorded ?Confirmed ?Type aspirin 81 mg chewable tablet 81 mg PO DAILY 02/24/24 02/24/24 History clotrimazole 1 % topical cream 1 applic topical BID 14 days #45 02/24/24 Rx grams diclofenac sodium 1 % topical gel 4 g topical QID 7 days #100 grams 02/24/24 Rx metoprolol tartrate 25 mg tablet 25 mg PO BID 02/24/24 02/24/24 History mupirocin 2 % topical ointment 1 applic topical BID 7 days #22 02/24/24 Rx grams rivaroxaban 2.5 mg tablet (Xarelto) mg 02/24/24 02/24/24 History rosuvastatin 40 mg tablet mg 02/24/24 History Sedation/Anesthesia: No previous sedation/anesthesia problems (including family history). [facility] Past Medical History Medical History Vitamin D deficiency Secondary polycythemia Due to testosterone therapy Hypogonadism in male No longer receiving testosterone therapy since approximately 2017 Psoriasis Rib fractures Right hand fracture Kidney stones GERD (gastroesophageal reflux disease) Surgical History Surgical History History of meniscectomy of left knee Family History Family History Father Myocardial infarct CAD (coronary artery disease) of artery bypass graft Sibling Diabetes mellitus Cardiomyopathy Social History Social History Social History: He has been since proximally 2002. They have 2 children ages 17 and 19. 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 He has smoked as much as 1.5 packs per cigarettes since he was a teenager. He denies any significant alcohol or illicit substance use. Code status: Full code Surrogate decision maker: Smoking packs per day: 1 Smoking cigarettes per day: 20.0 Years smoked: 36 Smoking pack-years: 36.00 Smoking status: Current every day smoker Tobacco type: cigarettes Second hand tobacco smoke exposure: Yes Smoking end date: 07/21/22 Additional smoking assessment comments: states 1- 1-1/2pkg's Alcohol intake: never Substance use: never Lack of Transportation: No Lack of Food: Never True Current Housing: I Have Housing Concerned About Future Housing: No Difficulty Paying Gas/Electric Bills: No Difficulty Paying for Meds: No Currently Unemployed: No Education: High School Diploma/GED Difficulty w/ Childcare or Family Care: No Spiritual care concerns: No Mod Sed Physical Exam Physical Exam Pre Procedural Exam: Normal: Appearance, Eyes, Ears, Nose, Neck, Throat, Airway, Lungs, Heart Size, Heart Rate, Heart Rhythm, Neuro Exam, Abdomen, Liver, Kidneys, Spleen, Breasts, Genitalia, Extremities and Skin Hours since solid foods: 8 Hours since liquid intake: 8 Mallampati Classification: class 1 Internal Medicine - PN: Obj Da Vital Signs Vital Signs: Vital Signs - 24 hr 05/19/24 20:02 05/19/24 20:15 05/19/24 20:22 Temperature 36.4 C Pulse Rate 72 71 79 Respiratory Rate 22 H 16 Blood Pressure 161/85 H 144/92 H Pulse Oximetry 100 95 Oxygen Delivery Room Air 05/19/24 20:23 Temperature Pulse Rate Respiratory Rate Blood Pressure Pulse Oximetry Oxygen Delivery Room Air Meds/Results Radiology Results: ITS Impressions Chest X-Ray 05/19/24 20:42 IMPRESSION: Mild pulmonary vascular congestion, without focal infiltrate or effusion. Labs 05/19/24 20:15 05/19/24 20:15 Labs: Laboratory Results - last 24 hr 05/19/24 20:15 WBC 12.2 H RBC 4.80 Hgb 16.0 Hct 46.7 MCV 97.3 MCH 33.3 MCHC 34.3 RDW 13.3 Plt Count 213 MPV 9.2 Immature Gran % (Auto) 0.3 Neut % (Auto) 56.9 Lymph % (Auto) 32.2 [place] % (Auto) 8.3 Eos % (Auto) 1.9 Baso % (Auto) 0.4 Lymph # (Auto) 3.91 H [place] # (Auto) 1.0 H Eos # (Auto) 0.2 Baso # (Auto) 0.1 Abs Immat Gran (auto) 0.04 H Absolute Neuts (auto) 6.9 H Absolute Nucleated RBC 0.000 Nucleated RBC % 0.0 PT 12.3 INR 0.9 APTT 29.0 Sodium 139 Potassium 3.6 Chloride 106 Carbon Dioxide 22 Anion Gap 11 BUN 16 Creatinine 1.65 H Estim Creat Clear Calc 54 Estimated GFR 44 L Glucose 129 H Calcium 9.1 Total Bilirubin 0.6 AST 34 ALT 60 H Alkaline Phosphatase 113 Troponin I 0.021 Total Protein 7.0 Albumin 4.4 Lipase 123 ASA Classification/Sedation ASA Classification/Sedation ASA Class: I Emergent: No Risks: Risks, benefits and alternatives explained and patient/family accepted plan for sedation. Patient re-evaluated immediately prior to sedation.
--- NOTE | 2024-05-19 22:37 | WPDCARDPROC ---
Cardiac Cath Procedure Note Date of procedure:: 05/19/24 Performing physician:: Nic Rosales MD date of service 05/19/2024 Indication:: inferior STEMI Brief clinical history:: 53-year-old patient with history of CABG couple years ago SWIFT to LAD radial artery to om, hyperlipidemia, tobacco abuse and family history of CAD started having central crushing chest pain 30 minutes prior to arrival here to the hospital. EKG shows inferior ST elevations. Procedure Procedure performed:: 1-Moderate sedation that started at 9:07 p.m.and ended at 10:30 p.m. total duration 83 minutes using 3mg of Versed and 75mcg fentanyl. The registered nurse was Angeli trevino. 2-Selective left and right coronary angiogram. 3-Left heart catheterization with measurement of LVEDP and measurement of gradient across aortic valve. 4-Right common femoral arterial angiogram. 5-penumbra thrombectomy of the right coronary artery. 6- intravascular ultrasound of the right coronary artery. 7- deployment of a drug-eluting stent 3.5 x 15 brandan covering the junction of the mid to distal RCA with deployment corresponding to size 3.7 mm. 8- deployment of a drug-eluting stent brandan 4 x 22 covering proximal RCA. Post dilatation of the proximal portion of the stent to 4.5 mm . 9- coronary bypass graft angiogram. Sedation/Medication given:: Moderate sedation. Access site:: Right common femoral artery. 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 Moderate sedation was given and the right groin was infiltrated using 1% lidocaine. six Afghan sheath was obtained using micropuncture needle and the modified Seldinger technique. Selective right coronary angiogram was done using JR4 catheter with the tip of the catheter placed to the right coronary artery . After the 6 Afghan guide catheter the JR4 was engaged in the RCA and then coronary new luge wire was advanced to distal RCA. penumbra Thrombectomy was done with retrieval of blood clot. balloon angioplasty done using 3 x 10 balloon under 13 atmospheres for 25 seconds. Then proximally using the same balloon as well. Intravascular ultrasound of the RCA was done and determined that the RCA distally measures around 3.6-3.7 mm and proximally measures 4 mm distal to the Proximal lesion and 4.5 mm proximal to the lesion. after that we took a stent 3.515 brandan and deployed it in the distal portion of the RCA at the junction of the mid to the distal portion corresponding to size 3.7 mm under 25 seconds. Then we took brandan stent 4 x 22 and deployed it in the proximal lesion under nominal pressure for 25 seconds. We used noncompliant balloon 4 x 12 and inflated it in the distal portion of the stent under nominal pressure for 30 seconds and then we took 4.5 x 8 noncompliant balloon inflated it under normal pressure the proximal portion of the stent for 30 seconds. Selective left coronary angiogram was done using JL4 catheter with the tip of the catheter placed in the left main coronary artery. diagnostic 5 Afghan JR4 catheter was used to engage the radial artery graft to OM and then we also engaged with the SWIFT and SWIFT angiogram was done. . After that 5 Afghan pigtail catheter was advanced across the aortic valve into the left ventricle with measurement of LVEDP and measurement of gradient across aortic valve. Right common femoral arterial was done. Findings:: 1- left coronary artery is a large artery that divides into large LAD, large circumflex artery. distal left main 80%. 2- left anterior descending artery is Totally occluded proximally. Distal to the SWIFT touchdown LAD has minimal irregularities. 3- leftcircumflex artery is a large artery But distally there is a lesion about 70%. 4- right coronary artery is Totally occluded at the junction of the mid to the distal portion. Proximal lesion of about 80%. The rest of the artery after restoring blood flow has diffuse irregularities. 5- radial artery graft to OM widely patent. 6- SWIFT to LAD widely patent. 7- IVS of the RCA shows distally RCA measures about 3.7 mm and distal to the proximal lesion about 4 mm and proximal to the proximal lesion was 4.5 mm 5- LVEDP was 25 mm Hg and no gradient across aortic valve. 6- opening arterial pressure was 160/78and closing pressure was 130/73 7- right femoral artery angiogram shows no significant disease in the right common femoral artery. Assessment and Plan Assessment and plan (1) ST elevation (STEMI) myocardial infarction: Code(s): I21.3 - ST elevation (STEMI) myocardial infarction of unspecified site Status: Acute Plan - continue aspirin and Brilinta - tobacco cessation - aggressive risk factor modification for CAD
--- NOTE | 2024-05-19 22:48 | PM.IMHP ---
H&P: HPI History of Present Illness Date/Time: date of service 05/19/24 22:48 Chief Complaint: chest pain Narrative: 53-year-old patient with history of CABG couple years ago SWIFT to LAD radial artery to om, hyperlipidemia, tobacco abuse and family history of CAD started having central crushing chest pain 30 minutes prior to arrival here to the hospital. EKG shows inferior ST elevations. 53-year-old patient with history of CABG couple years ago SWIFT to LAD radial artery to om, hyperlipidemia, tobacco abuse and family history of CAD started having central crushing chest pain 30 minutes prior to arrival here to the hospital. EKG shows inferior ST elevations. We discussed risks and benefits of cardiac catheterization he agreed to proceed. We proceeded in emergency fashion Review of Systems Review of Systems: All systems reviewed & are unremarkable except as noted in HPI and below Constitutional: Constitutional: Denies chills, Denies fatigue, Denies fever(s), Denies headache(s) and Denies snoring Eyes: Eyes: Denies eye discharge and Denies loss of vision ENT: Denies dizziness, Denies headache(s), Denies nasal discharge and Denies sore throat Cardiovascular: Cardiovascular: Reports as per HPI, Reports chest pain, Denies syncope, Denies rapid heart rate, Denies leg edema, Reports dyspnea, Reports dyspnea on exertion, Denies orthopnea and Denies paroxysmal nocturnal dyspnea Respiratory: Respiratory: Denies chest congestion, Denies cough, Reports dyspnea, Reports dyspnea on exertion, Denies snoring and Denies wheezing Gastrointestinal: Gastrointestinal: Denies abdominal pain, Denies diarrhea, Denies nausea and Denies vomiting Genitourinary: Genitourinary: Denies hematuria, Denies dysuria, Denies flank pain and Denies urinary frequency Musculoskeletal: Musculoskeletal: Denies myalgias, Denies arthralgias and Denies joint swelling Neurologic: Denies Abnormal speech present, Denies dizziness, Denies syncope, Denies headache(s), Denies focal weakness and Denies loss of vision Psychiatric: Psychiatric: Denies anxiety and Denies depression Endocrine: Endocrine: Denies cold intolerance, Denies fatigue and Denies heat intolerance Hematologic/Lymphatic: Hematologic/Lymphatic: Denies easy bleeding and Denies easy bruising Allergic/Immunologic: Allergic/Immunologic: Denies urticaria and Denies wheezing PMFSH Past Medical History Medical History Vitamin D deficiency Secondary polycythemia Due to testosterone therapy Hypogonadism in male No longer receiving testosterone therapy since approximately 2018 Psoriasis Rib fractures Right hand fracture Kidney stones GERD (gastroesophageal reflux disease) Surgical History Surgical History History of meniscectomy of left knee Family History Family History Father Myocardial infarct CAD (coronary artery disease) of artery bypass graft Sibling Diabetes mellitus Cardiomyopathy Social History Social History Social History: He has been since proximally 2002. They have 2 children ages 17 and 19. 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 He has smoked as much as 1.5 packs per cigarettes since he was a teenager. He denies any significant alcohol or illicit substance use. Code status: Full code Surrogate decision maker: Smoking packs per day: 1 Smoking cigarettes per day: 20.0 Years smoked: 36 Smoking pack-years: 36.00 Smoking status: Current every day smoker Tobacco type: cigarettes Second hand tobacco smoke exposure: Yes Smoking end date: 07/21/22 Additional smoking assessment comments: states 1- 1-1/2pkg's Alcohol intake: never Substance use: never Lack of Transportation: No Lack of Food: Never True Current Housing: I Have Housing Concerned About Future Housing: No Difficulty Paying Gas/Electric Bills: No Difficulty Paying for Meds: No Currently Unemployed: No Education: High School Diploma/GED Difficulty w/ Childcare or Family Care: No Spiritual care concerns: No Meds Home Medications and Allergies Home Medications ?Medication ?Instructions ?Recorded ?Confirmed ?Type aspirin 81 mg chewable tablet 81 mg PO DAILY 02/24/24 02/24/24 History clotrimazole 1 % topical cream 1 applic topical BID 14 days #45 02/24/24 Rx grams diclofenac sodium 1 % topical gel 4 g topical QID 7 days #100 grams 02/24/24 Rx metoprolol tartrate 25 mg tablet 25 mg PO BID 02/24/24 02/24/24 History mupirocin 2 % topical ointment 1 applic topical BID 7 days #22 02/24/24 Rx grams rivaroxaban 2.5 mg tablet (Xarelto) mg 02/24/24 02/24/24 History rosuvastatin 40 mg tablet mg 02/24/24 History Allergies Allergy/AdvReac Type Severity Reaction Status Date / Time No Known Allergies Allergy Verified 02/24/24 10:45 Vital Signs Vital Signs - 24 hr 05/19/24 20:02 05/19/24 20:15 05/19/24 20:22 Temperature 36.4 C Pulse Rate 72 71 79 Respiratory Rate 22 H 16 Blood Pressure 161/85 H 144/92 H Pulse Oximetry 100 95 Oxygen Delivery Room Air 05/19/24 20:23 Temperature Pulse Rate Respiratory Rate Blood Pressure Pulse Oximetry Oxygen Delivery Room Air Exam Const: General: cooperative, healthy appearing, comfortable, no acute distress, well developed and well nourished Nutritional Appearance: well nourished Orientation/consciousness: patient oriented x3 HENMT: Head: normal to inspection, normocephalic and atraumatic Ears: hearing grossly normal bilaterally and external ears normal Face/Nose/Sinus: Normal external nose present, Normal nares present, normal facial exam and No erythema Face and sinus: normal facial exam and no erythema Mouth: Yes moist mucous membranes and No lip abnormal Throat: uvula midline Eyes: General: appearance normal, both eyes and all related structures Eyelids: eyelids normal Sclera: sclerae normal Neck: Neck: normal visual inspection and full ROM Thyroid: thyroid normal Carotids: no bruits Lymphatic: lymphedema not noted Chest: Chest palpation & inspection: normal inspection of the chest and normal palpation of entire chest wall Resp: Effort & Inspection: normal respiratory effort and not labored Auscultation: clear to auscultation bilaterally, no crackles, no rales and no wheezes Cardio: Jugular venous distension: no JVD Rate: regular rate Rhythm: regular rhythm Heart sounds: S1 normal heart sound present, S2 normal heart sound present, no click, no gallops, no murmurs and no rubs Bruits: no carotid bruits GI: Inspection: normal to inspection and non-distended GI Palp: No abdominal tenderness Auscultation: normal bowel sounds Rectal Exam: deferred : General: No CVA tenderness and Yes no CVA tenderness Back/Spine/Pelvis: Back: no CVA tenderness, No CVA tenderness and No erythema Cervical Spine: cervical ROM normal Skin: General skin exam: normal color, no erythema and no pallor Lesions: no lesions Rashes: no rashes Neuro: General: patient oriented x3 and moves all extremities Cranial nerves: Yes facial symmetry Speech: normal speech Motor exam (neuro): 5/5 motor strength present throughout Extrem: General: normal to inspection and full ROM Psych: Appearance: grossly normal, well kempt and disheveled Affect: normal affect H&P: Results Labs Labs: Short CBC 05/19/24 Range/Units 20:15 WBC 12.2 H (4.5-10.0) K/mm3 Hgb 16.0 (14.0-18.0) g/dL Hct 46.7 (42.0-52.0) % Plt Count 213 (150-375) k/mm3 BMP 05/19/24 20:15 Sodium 139 Potassium 3.6 Chloride 106 Carbon Dioxide 22 BUN 16 Creatinine 1.65 H Glucose 129 H Calcium 9.1 Cardiac Enzymes 05/19/24 Range/Units 20:15 Troponin I 0.021 (0.000-0.034) ng/mL Liver Function 05/19/24 Range/Units 20:15 Total Bilirubin 0.6 (0.2-1.3) mg/dL AST 34 (17-59) U/L ALT 60 H (6-50) U/L Alkaline Phosphatase 113 (38-126) U/L Albumin 4.4 (3.5-5.1) g/dL Assessment and Plan Assessment and plan (1) ST elevation (STEMI) myocardial infarction: Code(s): I21.3 - ST elevation (STEMI) myocardial infarction of unspecified site Status: Acute (2) History of coronary artery bypass graft: Code(s): Z95.1 - Presence of aortocoronary bypass graft Status: Acute (3) Tobacco abuse counseling: Code(s): Z71.6 - Tobacco abuse counseling Status: Acute Plan in regards to STEMI risks and benefits of cardiac catheterizations cuts with the patient agreed to proceed. We proceeded in an emergency fashion. patient was found to have totally occluded RCA status post stenting of the junction of the mid to distal and proximal portion of the RCA. - he did have patent radial artery graft to OM and SWIFT to LAD. - continue aspirin and Brilinta in regards to tobacco abuse, advised to quit.. - Regards history of CABG, aggressive risk factor modification for CAD is needed. - in regards to dyslipidemia we will check lipid panel and be more aggressive with lipid management.
--- NOTE | 2024-05-19 23:01 | ADMGEN ---
This patient, Lopez Pierson, was admitted to Intensive Care Unit-2. Patient/family oriented to hospital policies and general routines including ID bracelet, bed and alarms, visiting hours, pain management, procedures, bathroom and other care routines, personal items, smoking policy, room service/diet, and visiting hours. Information on how to activate the Rapid Response Team has been discussed. Patient/Family are encouraged to report perceived risks to care and to ask questions if they do not understand what they are told or what they should do.
--- NOTE | 2024-05-19 23:21 | ECG_ITS ---
Test Date: 2024-05-19 20:12:47 Measurements Intervals [place] Rate: 68 P: 31 ND: 173 QRS: 82 QRSD: 116 T: 90 QT: 356 QTc: 379 Interpretive Statements SINUS RHYTHM INTRAVENTRICULAR CONDUCTION DELAY INFERIOR ST ELEVATION MYOCARDIAL INJURY- ACUTE POSTERIOR INFARCT, ACUTE RECIPROCAL ST DEPRESSION IN HIGH LATERAL LEADS BASELINE ARTIFACT- I, III, AVR, AVL, AVF, V4-V6 ABNORMAL ECG Compared to ECG 05/19/2024 20:06:39 NO SIGNIFICANT CHANGE Electronically Signed On 05-20-2024 06:41:03 WINDOWS VMWARE ADMINISTRATOR by Chino Mendez D.O.
--- NOTE | 2024-05-19 23:35 | ECG_ITS ---
Test Date: 2024-05-19 23:39:04 Measurements Intervals [place] Rate: 87 P: 57 PA: 158 QRS: 56 QRSD: 95 T: -24 QT: 345 QTc: 416 Interpretive Statements SINUS RHYTHM INFERIOR INFARCT, PROBABLY RECENT BORDERLINE ST-T WAVE ABNORMALITY- ANTEROLATERAL LEADS BASELINE ARTIFACT- I, III, AVL ABNORMAL ECG Compared to ECG 05/19/2024 20:12:47 STEMI NO LONGER PRESENT Electronically Signed On 05-20-2024 10:42:14 FEED HOUSE SUPERVISOR by Chino Mendez D.O.
[2024-05-19] MEDS: HYDROcodone/acetaminophen (*CRX) 5-325 MG TABLET 1 TAB PO (23:47)
[2024-05-19] MEDS: SODIUM CHLORIDE 0.9% IV 1,000 ML 125 ML IV CONT (23:53)
[2024-05-20] VITALS (31 sets, daily range): BP systolic 103–125; BP diastolic 58–86; PULSE 56–88; RESP 12–24; TEMP 36.3–37.1; O2SAT 90–100
[2024-05-20 04:09] LABS: Basophils Percent Auto 0.2 % (0.2-1.2); Eosinophils Absolute Auto 0.1 K/mm3 (0-0.3); Eosinophils Percent Auto 0.8 % (0-4.4); Hematocrit 42.2 % (42.0-52.0); Hemoglobin 14.7 g/dL (14.0-18.0); Immature Granulocyte Absolute 0.05 K/mm3 (0.00-0.031); Immature Granulocyte Percent A 0.4 % (0-0.5); Lymphocytes Absolute Auto 2.15 K/mm3 (0.9-3.2); Lymphocytes Percent Auto 18.6 % (18.3-44.2); Mean Corpuscular HGB Conc 34.8 g/dl (32-36); Mean Corpuscular Hemoglobin 33.7 pg (26-34); Mean Corpuscular Volume 96.8 fl (80-100); Mean Platelet Volume 9.4 fl (7.4-10.4); Monocytes Absolute Auto 0.9 K/mm3 (0.1-0.6); Monocytes Percent Auto 7.3 % (2.6-8.5); Neutrophils Absolute Auto 8.4 K/mm3 (1.3-6.7); Neutrophils Percent Auto 72.7 % (45.5-73.1); Platelet Count Result 168 k/mm3 (150-375); Red Blood Count 4.36 M/mm3 (4.6-6.20); Red Cell Distribution Width 13.2 % (11.5-14.5); White Blood Count 11.6 K/mm3 (4.5-10.0)
[2024-05-20 04:20] LABS: Anion Gap 7 mmol/L (4-12); Blood Urea Nitrogen 13 mg/dL (9-20); Calcium 8.5 mg/dL (8.4-10.2); Carbon Dioxide 22 mmol/L (22-30); Chloride 109 mmol/L (98-107); Cholesterol 102 mg/dL (0-200); Estimated CRCL calculation 64 ml/min; Estimated Glomerular Filt Rate 53; Glucose 103 mg/dL (65-110); HDL Direct 42 mg/dL; Potassium 3.9 mmol/L (3.4-5.0); Sodium 138 mmol/L (137-145); Triglycerides 82 mg/dL (<150)
[2024-05-20 04:31] LABS: LDL Cholesterol Direct 42 mg/dL
[2024-05-20] MEDS: HYDROcodone/acetaminophen (*CRX) 5-325 MG TABLET 1 TAB PO ×2 (05:54→18:29)
[2024-05-20] MEDS: ATORVASTATIN 40 MG TABLET 80 MG PO (08:31)
[2024-05-20] MEDS: TICAGRELOR 90 MG TABLET PO ×2 (08:31→20:25)
[2024-05-20] MEDS: ASPIRIN 81 MG CHEWABLE TABLET PO (08:31)
--- NOTE | 2024-05-20 09:05 | WPDCNINT ---
Assessment and Plan Assessment and plan (1) ST elevation (STEMI) myocardial infarction: Code(s): I21.3 - ST elevation (STEMI) myocardial infarction of unspecified site Status: Acute Assessment and Plan: 05/19/24: Patient presented with crushing chest pain, radiating to left arm, associated with nausea, diaphoresis. No shortness of breath - EKG showed inferior ST elevation MD, patient was given heparin, aspirin, Dilaudid, oxygen. -Code STEMI was activated and patient was taken to the phlebotomist medical lab assistant where he was found to have inferior ST-elevation MD status post PTCA/PCI with JAJA x2 to mid and distal RCA. -cardiology following the patient closely -continue ticagrelor, aspirin, statin (2) Coronary disease: Code(s): I25.10 - Atherosclerotic heart disease of [place] coronary artery without angina pectoris Status: Acute Assessment and Plan: Patient has had a history of coronary artery bypass graft in 2022 - (3) Tobacco abuse counseling: Code(s): Z71.6 - Tobacco abuse counseling Status: Acute Assessment and Plan: Counseled patient on tobacco cessation (4) Hyperlipidemia: Code(s): E78.5 - Hyperlipidemia, unspecified Status: Acute Assessment and Plan: Continue statin Plan DVT prophylaxis: Status post cardiac catheterization Stress ulcer prophylaxis: Not indicated Nutrition: Heart healthy diet Code Status: Full code Critical Care Time Spent: 47 minutes Due to a high probability of clinically significant, life threatening deterioration, the patient required my highest level of preparedness to intervene emergently and I personally spent this critical care time directly and personally managing the patient. This critical care time included obtaining a history; examining the patient; pulse oximetry; ordering and review of studies; arranging urgent treatment with development of a management plan; evaluation of patient's response to treatment; frequent reassessment; and discussions with other providers. It was exclusive of separately billable procedures and treating other patients and teaching time. Please see Assessment and Plan section and the rest of the note for further information on patient assessment and treatment This dictation may have been done utilizing a voice recognition system. Attempts have been made to correct errors. However, there may be uncorrected grammatical, spelling, and recognitions errors present. Excel Specialist Consult Note Consult date: 05/20/24 Reason for consult: Inferior ST-elevation MD status post PTCA/PCI with JAJA x2 to mid and distal RCA HPI: Lopez Pierson is a 53 year old male with past medical history of coronary artery disease status post CABG in 2022, vitamin-D deficiency slow, secondary polycythemia due to testosterone therapy, hypogonadism, psoriasis, kidney stones, GERD presented the ED on 05/19/2024 with complains of crushing substernal chest pain radiating to his left arm. Chest pain was 10/10 in intensity, associated with diaphoresis, nausea. In the ER he stated that it felt like colostomy had a heart attack. In the ER EKG showed inferior ST elevation MD, patient was given heparin, aspirin, Dilaudid, oxygen. Code STEMI was activated and patient was taken to the phlebotomist medical lab assistant where he was found to have inferior ST-elevation MD status post PTCA/PCI with JAJA x2 to mid and distal RCA. Post cath patient was transfer the ICU for further management Patient seen examined this morning in the ICU, is awake, alert, oriented, denies any chest pain, shortness of breath, nausea, vomiting or diaphoresis. States he feels much better. Currently hemodynamically stable, adequate urine output, afebrile Review of Systems Review of Systems: All systems reviewed & are unremarkable except as noted in HPI and below PMFSH Past Medical History Medical History Vitamin D deficiency Secondary polycythemia Due to testosterone therapy Hypogonadism in male No longer receiving testosterone therapy since approximately 2018 Psoriasis Rib fractures Right hand fracture Kidney stones GERD (gastroesophageal reflux disease) Surgical History Surgical History History of meniscectomy of left knee Family History Family History Father Myocardial infarct CAD (coronary artery disease) of artery bypass graft Sibling Diabetes mellitus Cardiomyopathy Social History Social History Social History: He has been since proximally 2002. They have 2 children ages 17 and 19. 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 He has smoked as much as 1.5 packs per cigarettes since he was a teenager. He denies any significant alcohol or illicit substance use. Code status: Full code Surrogate decision maker: Smoking packs per day: 0.5 Smoking cigarettes per day: 10.0 Years smoked: 36 Smoking pack-years: 18.00 Smoking status: Current every day smoker Tobacco type: cigarettes Smokeless tobacco user: chewing tobacco Second hand tobacco smoke exposure: Yes Smoking end date: 07/21/22 Additional smoking assessment comments: states 1- 1-1/2pkg's Alcohol intake: never Substance use: never Do You Feel Safe in your Home?: Yes Lack of Transportation: No Lack of Food: Never True Current Housing: I Have Housing Concerned About Future Housing: No Difficulty Paying Gas/Electric Bills: No Difficulty Paying for Meds: No Currently Unemployed: No Education: Associate Degree Difficulty w/ Childcare or Family Care: No Spiritual care concerns: No Meds Home Medications and Allergies Home Medications ?Medication ?Instructions ?Recorded ?Confirmed ?Type aspirin 81 mg chewable tablet 81 mg PO DAILY 02/24/24 05/19/24 History diclofenac sodium 1 % topical gel 4 g topical QID 7 days #100 grams 02/24/24 05/19/24 Rx metoprolol tartrate 25 mg tablet 25 mg PO BID 02/24/24 05/19/24 History mupirocin 2 % topical ointment 1 applic topical BID 7 days #22 02/24/24 05/19/24 Rx grams rivaroxaban 2.5 mg tablet (Xarelto) 2.5 mg PO Q24H 02/24/24 05/19/24 History rosuvastatin 40 mg tablet 40 mg PO DAILY 02/24/24 05/19/24 History Allergies Allergy/AdvReac Type Severity Reaction Status Date / Time No Known Allergies Allergy Verified 02/24/24 10:45 Vital Signs Vital Signs - 24 hr 05/19/24 20:02 05/19/24 20:15 05/19/24 20:22 Temperature 97.6 F Pulse Rate 72 71 79 Pulse Rate [Bilateral Pedal (Dorsalis Pedis)] Respiratory Rate 22 H 16 Blood Pressure 161/85 H 144/92 H Pulse Oximetry 100 95 Oxygen Delivery Room Air Oxygen Flow Rate 05/19/24 20:23 05/19/24 23:14 05/19/24 23:14 Temperature Pulse Rate 79 90 Pulse Rate [Bilateral Pedal (Dorsalis Pedis)] Respiratory Rate 16 Blood Pressure Pulse Oximetry 95 Oxygen Delivery Room Air Room Air Oxygen Flow Rate 05/19/24 23:14 05/19/24 23:21 05/19/24 23:36 Temperature 98.7 F Pulse Rate 90 87 83 Pulse Rate [Bilateral Pedal (Dorsalis Pedis)] Respiratory Rate 16 18 15 Blood Pressure 123/81 123/81 123/81 Pulse Oximetry 92 91 90 Oxygen Delivery Oxygen Flow Rate 05/19/24 23:51 05/20/24 00:06 05/20/24 00:21 Temperature 98.7 F 98.8 F Pulse Rate 80 80 84 Pulse Rate [Bilateral Pedal (Dorsalis Pedis)] Respiratory Rate 17 19 19 Blood Pressure 123/84 117/82 125/85 Pulse Oximetry 91 92 90 Oxygen Delivery Oxygen Flow Rate 05/20/24 00:51 05/20/24 01:21 05/20/24 02:00 Temperature Pulse Rate 69 64 64 Pulse Rate [Bilateral Pedal (Dorsalis Pedis)] Respiratory Rate 15 15 Blood Pressure 116/74 116/74 Pulse Oximetry 92 92 Oxygen Delivery Oxygen Flow Rate 05/20/24 02:21 05/20/24 03:08 05/20/24 03:21 Temperature Pulse Rate 69 65 63 Pulse Rate [Bilateral Pedal (Dorsalis Pedis)] Respiratory Rate 15 14 14 Blood Pressure 114/77 114/77 103/64 Pulse Oximetry 92 96 95 Oxygen Delivery Oxygen Flow Rate 05/20/24 03:23 05/20/24 03:53 05/20/24 04:00 Temperature Pulse Rate 65 65 65 Pulse Rate [Bilateral Pedal (Dorsalis Pedis)] Respiratory Rate 17 17 17 Blood Pressure 109/67 109/67 Pulse Oximetry 95 95 95 Oxygen Delivery Room Air Oxygen Flow Rate 05/20/24 04:00 05/20/24 04:00 05/20/24 04:23 Temperature Pulse Rate 65 58 L 65 Pulse Rate [Bilateral Pedal (Dorsalis Pedis)] Respiratory Rate 14 17 Blood Pressure 107/74 109/67 Pulse Oximetry 98 95 Oxygen Delivery Oxygen Flow Rate 05/20/24 05:00 05/20/24 05:23 05/20/24 06:00 Temperature Pulse Rate 65 65 68 Pulse Rate [Bilateral Pedal (Dorsalis Pedis)] Respiratory Rate 12 17 Blood Pressure 115/78 109/67 Pulse Oximetry 95 95 Oxygen Delivery Oxygen Flow Rate 05/20/24 06:00 02/08/25 07:57 05/20/24 08:00 Temperature Pulse Rate 64 84 71 Pulse Rate [Bilateral Pedal (Dorsalis Pedis)] Respiratory Rate 12 24 H 13 Blood Pressure 123/86 119/83 Pulse Oximetry 97 96 94 Oxygen Delivery Nasal Cannula Oxygen Flow Rate 2 05/20/24 08:00 05/20/24 08:00 05/20/24 08:23 Temperature 97.3 F L Pulse Rate 75 69 59 L Pulse Rate [Bilateral Pedal (Dorsalis Pedis)] 59 L Respiratory Rate 20 14 Blood Pressure 120/80 120/80 Pulse Oximetry 97 95 Oxygen Delivery Oxygen Flow Rate Exam Narrative: General: Pleasant gentleman in no acute distress HEENT:? Pupils equal and reactive, sclerae is clear Neck:? Supple Respiratory:? Clear to auscultation bilaterally, decreased at bases, adequate air entry Cardiac:? S1-S2 is normal, regular rate and rhythm Abdomen:? Soft, nontender, nondistended, normoactive bowel sounds Extremities:? Right groin site without evidence of hematoma or ecchymosis, palpable pedal pulses bilaterally Neuro:? Patient is awake, alert, oriented, non for Skin:? Warm and dry, no skin lesions noted Psych:? Normal mentation and affect Results Labs 05/20/24 03:58 05/20/24 03:58 Labs: Short CBC 05/19/24 05/20/24 Range/Units 20:15 03:58 WBC 12.2 H 11.6 H (4.5-10.0) K/mm3 Hgb 16.0 14.7 (14.0-18.0) g/dL Hct 46.7 42.2 (42.0-52.0) % Plt Count 213 168 (150-375) k/mm3 BMP 05/19/24 05/20/24 20:15 03:58 Sodium 139 138 Potassium 3.6 3.9 Chloride 106 109 H Carbon Dioxide 22 22 BUN 16 13 Creatinine 1.65 H 1.40 H Glucose 129 H 103 Calcium 9.1 8.5 Cardiac Enzymes 05/19/24 Range/Units 20:15 Troponin I 0.021 (0.000-0.034) ng/mL Liver Function 05/19/24 Range/Units 20:15 Total Bilirubin 0.6 (0.2-1.3) mg/dL AST 34 (17-59) U/L ALT 60 H (6-50) U/L Alkaline Phosphatase 113 (38-126) U/L Albumin 4.4 (3.5-5.1) g/dL Quality VTE Prophylaxis VTE prophylaxis: mechanical ordered Hospitalist MIPS Advance Care Plan I have confirmed that the patient's Advanced Care Plan is present, code status is documented, or surrogate decision maker is listed in patient medical record.: Yes Medication Reconciliation I have utilized all available resources to obtain, update and review the patients current medications (includes all prescriptions, OTC, herbals, cannabis, and nutritional supplements).: Yes
--- NOTE | 2024-05-20 12:58 | PM.PNCARD ---
Progress Note: A&P Assessment and Plan (1) ST elevation (STEMI) myocardial infarction: Code(s): I21.3 - ST elevation (STEMI) myocardial infarction of unspecified site Status: Acute Plan Status post PCI to the RCA with 2 drug-eluting stent History of coronary artery disease and prior CABG howell to the LAD radial graft to OM Mixed dyslipidemia Plan Aspirin Brilinta Statin Metoprolol 25 mg b.i.d. Transthoracic echocardiogram Subjective Date/time seen: 05/20/24 12:58 Interval history: No acute events Telemetry sinus rhythm Review of Systems Review of Systems: All systems reviewed & are unremarkable except as noted in HPI and below Exam Narrative: General: Pleasant gentleman in no acute distress HEENT:? Pupils equal and reactive, sclerae is clear Neck:? Supple Respiratory:? Clear to auscultation bilaterally, decreased at bases, adequate air entry Cardiac:? S1-S2 is normal, regular rate and rhythm Abdomen:? Soft, nontender, nondistended, normoactive bowel sounds Extremities:? Right groin site without evidence of hematoma or ecchymosis, palpable pedal pulses bilaterally Neuro:? Patient is awake, alert, oriented, non for Skin:? Warm and dry, no skin lesions noted Psych:? Normal mentation and affect Objective Data Vital Signs Vital Signs: Vital Signs - 24 hr 05/19/24 20:02 05/19/24 20:15 05/19/24 20:22 Temperature 36.4 C Pulse Rate 72 71 79 Pulse Rate [Bilateral Pedal (Dorsalis Pedis)] Respiratory Rate 22 H 16 Blood Pressure 161/85 H 144/92 H Pulse Oximetry 100 95 Oxygen Delivery Room Air Oxygen Flow Rate 05/19/24 20:23 05/19/24 23:14 05/19/24 23:14 Temperature Pulse Rate 79 90 Pulse Rate [Bilateral Pedal (Dorsalis Pedis)] Respiratory Rate 16 Blood Pressure Pulse Oximetry 95 Oxygen Delivery Room Air Room Air Oxygen Flow Rate 05/19/24 23:14 05/19/24 23:21 05/19/24 23:36 Temperature 37.1 C Pulse Rate 90 87 83 Pulse Rate [Bilateral Pedal (Dorsalis Pedis)] Respiratory Rate 16 18 15 Blood Pressure 123/81 123/81 123/81 Pulse Oximetry 92 91 90 Oxygen Delivery Oxygen Flow Rate 05/19/24 23:51 05/20/24 00:06 05/20/24 00:21 Temperature 37.1 C 37.1 C Pulse Rate 80 80 84 Pulse Rate [Bilateral Pedal (Dorsalis Pedis)] Respiratory Rate 17 19 19 Blood Pressure 123/84 117/82 125/85 Pulse Oximetry 91 92 90 Oxygen Delivery Oxygen Flow Rate 05/20/24 00:51 05/20/24 01:21 05/20/24 02:00 Temperature Pulse Rate 69 64 64 Pulse Rate [Bilateral Pedal (Dorsalis Pedis)] Respiratory Rate 15 15 Blood Pressure 116/74 116/74 Pulse Oximetry 92 92 Oxygen Delivery Oxygen Flow Rate 05/20/24 02:21 05/20/24 03:08 05/20/24 03:21 Temperature Pulse Rate 69 65 63 Pulse Rate [Bilateral Pedal (Dorsalis Pedis)] Respiratory Rate 15 14 14 Blood Pressure 114/77 114/77 103/64 Pulse Oximetry 92 96 95 Oxygen Delivery Oxygen Flow Rate 05/20/24 03:23 05/20/24 03:53 05/20/24 04:00 Temperature Pulse Rate 65 65 65 Pulse Rate [Bilateral Pedal (Dorsalis Pedis)] Respiratory Rate 17 17 17 Blood Pressure 109/67 109/67 Pulse Oximetry 95 95 95 Oxygen Delivery Room Air Oxygen Flow Rate 05/20/24 04:00 05/20/24 04:00 05/20/24 04:23 Temperature Pulse Rate 65 58 L 65 Pulse Rate [Bilateral Pedal (Dorsalis Pedis)] Respiratory Rate 14 17 Blood Pressure 107/74 109/67 Pulse Oximetry 98 95 Oxygen Delivery Oxygen Flow Rate 05/20/24 05:00 05/20/24 05:23 05/20/24 06:00 Temperature Pulse Rate 65 65 68 Pulse Rate [Bilateral Pedal (Dorsalis Pedis)] Respiratory Rate 12 17 Blood Pressure 115/78 109/67 Pulse Oximetry 95 95 Oxygen Delivery Oxygen Flow Rate 05/20/24 06:00 05/20/24 07:57 05/20/24 08:00 Temperature Pulse Rate 64 84 71 Pulse Rate [Bilateral Pedal (Dorsalis Pedis)] Respiratory Rate 12 24 H 13 Blood Pressure 123/86 119/83 Pulse Oximetry 97 96 94 Oxygen Delivery Nasal Cannula Oxygen Flow Rate 2 05/20/24 08:00 05/20/24 08:00 05/20/24 08:23 Temperature 36.3 C L Pulse Rate 75 69 59 L Pulse Rate [Bilateral Pedal (Dorsalis Pedis)] 59 L Respiratory Rate 20 14 Blood Pressure 120/80 120/80 Pulse Oximetry 97 95 Oxygen Delivery Oxygen Flow Rate 05/20/24 09:00 05/20/24 10:00 05/20/24 10:00 Temperature 36.6 C Pulse Rate 80 66 74 Pulse Rate [Bilateral Pedal (Dorsalis Pedis)] Respiratory Rate 19 16 Blood Pressure 125/80 Pulse Oximetry 93 94 Oxygen Delivery Room Air Oxygen Flow Rate 05/20/24 11:07 05/20/24 11:15 Temperature 36.6 C Pulse Rate 59 L 67 Pulse Rate [Bilateral Pedal (Dorsalis Pedis)] Respiratory Rate 14 14 Blood Pressure 123/70 Pulse Oximetry 95 98 Oxygen Delivery Room Air Oxygen Flow Rate Intake/Output Intake/Output: Intake & Output 05/17/24 05/18/24 05/19/24 05/20/24 23:59 23:59 23:59 23:59 Intake Total 1600 Output Total 800 Balance 800 Meds/Results Medications: Active Medications Generic Name Dose Route Start Last Admin Trade Name Freq PRN Reason Stop Dose Admin Hydrocodone Bitart/Acetaminophen 1 tab 05/19/24 23:21 05/20/24 05:54 Hydrocodone/Acetaminophen (*Crx) 5-325 Mg Tablet PO 1 tab Q4-6H PRN Administration Pain Rated 1-3 Al Hydrox/Mg Hydrox/Simethicone 30 ml 05/19/24 23:21 Mag Hydrox/Al Hydrox/Simeth 30 Ml Udc PO Q4H PRN Indigestion Aspirin 81 mg 05/20/24 08:00 05/20/24 08:31 Aspirin 81 Mg Chewable Tablet PO 81 mg DAILY@0800 LUCILLE Administration Atorvastatin Calcium 80 mg 05/20/24 09:00 05/20/24 08:31 Atorvastatin 40 Mg Tablet PO 80 mg DAILY LUCILLE Administration Ondansetron HCl 4 mg 05/19/24 23:21 Ondansetron Hcl Odt 4 Mg Tablet PO 05/20/24 23:20 Q4-6H PRN Nausea Temazepam 15 mg 05/19/24 23:21 Temazepam (*Crx) 15 Mg Capsule PO HS PRN Insomnia Ticagrelor 90 mg 05/20/24 09:00 05/20/24 08:31 Ticagrelor 90 Mg Tablet PO 90 mg Q12HR LUCILLE Administration Radiology Results: ITS Impressions Chest X-Ray 05/19/24 20:42 IMPRESSION: Mild pulmonary vascular congestion, without focal infiltrate or effusion. Labs Labs: Laboratory Results - last 24 hr 05/19/24 05/20/24 20:15 03:58 WBC 12.2 H 11.6 H RBC 4.80 4.36 L Hgb 16.0 14.7 Hct 46.7 42.2 MCV 97.3 96.8 MCH 33.3 33.7 MCHC 34.3 34.8 RDW 13.3 13.2 Plt Count 213 168 MPV 9.2 9.4 Immature Gran % (Auto) 0.3 0.4 Neut % (Auto) 56.9 72.7 Lymph % (Auto) 32.2 18.6 [place] % (Auto) 8.3 7.3 Eos % (Auto) 1.9 0.8 Baso % (Auto) 0.4 0.2 Lymph # (Auto) 3.91 H 2.15 [place] # (Auto) 1.0 H 0.9 H Eos # (Auto) 0.2 0.1 Baso # (Auto) 0.1 0.0 Abs Immat Gran (auto) 0.04 H 0.05 H Absolute Neuts (auto) 6.9 H 8.4 H Absolute Nucleated RBC 0.000 0.000 Nucleated RBC % 0.0 0.0 PT 12.3 INR 0.9 APTT 29.0 Sodium 139 138 Potassium 3.6 3.9 Chloride 106 109 H Carbon Dioxide 22 22 Anion Gap 11 7 BUN 16 13 Creatinine 1.65 H 1.40 H Estim Creat Clear Calc 54 64 Estimated GFR 44 L 53 L Glucose 129 H 103 Hemoglobin A1c 6.0 H Calcium 9.1 8.5 Total Bilirubin 0.6 AST 34 ALT 60 H Alkaline Phosphatase 113 Troponin I 0.021 Total Protein 7.0 Albumin 4.4 Triglycerides 82 Cholesterol 102 LDL Cholesterol Direct 42 HDL Direct 42 Lipase 123
[2024-05-20] MEDS: METOPROLOL TARTRATE 25 MG TABLET PO (20:24)
[2024-05-21] VITALS (8 sets, daily range): BP systolic 100–115; BP diastolic 50–66; PULSE 60–76; RESP 16–20; TEMP 36.4–37; O2SAT 97–98
[2024-05-21] MEDS: METOPROLOL TARTRATE 25 MG TABLET PO (09:11)
[2024-05-21] MEDS: TICAGRELOR 90 MG TABLET PO (09:11)
[2024-05-21] MEDS: ASPIRIN 81 MG CHEWABLE TABLET PO (09:11)
[2024-05-21] MEDS: ATORVASTATIN 40 MG TABLET 80 MG PO (09:11)
--- NOTE | 2024-05-21 11:22 | PC.NURSE ---
Plan for pt discharge. No meds to beds initiated 05/20/24. [place] [facility] not open today.
--- NOTE | 2024-05-21 11:25 | PM.DS ---
DS: Admitting Diagnosis Discharge Date 05/21/2024 Admitting Diagnosis STEMI inferior wall Coronary artery disease with history of CABG Hypertension Mixed dyslipidemia Tobacco abuse DS: Discharge Diagnosis Discharge Diagnosis Plan STEMI will status post PCI with 1 drug-eluting stent to RCA Coronary artery disease history of CABG Hypertension Mixed dyslipidemia Tobacco abuse DS: Summary Hospital Course Hospital Course: 53-year-old male patient presents to the hospital with acute chest pain found to have ST-elevation inferior leads. Patient was taken emergently to the yard labor supervisor and had PCI to the RCA with 2 drug-eluting stents. Following procedure patient is doing well no recurrent chest pain. He has been ambulant with no complication. Exit site with no hematoma or bleeding. Patient was educated about the importance of compliance with medication. Patient was instructed to be discharged after 48 hours however patient does want to wait and insisted on leaving today. I explained the patient importance of getting an echocardiogram before discharge however the patient refused to wait and wanted to leave and get further workup as outpatient. Patient was sent importance of compliance with medication and come back to the hospital if he has recurrent episodes of chest pain Status at Discharge Cognitive/behavioral status at discharge: Stable Time Spent with Patient Time attestation: Total time spent providing and/or coordinating discharge services: 20 min Exam Narrative: General: Pleasant gentleman in no acute distress HEENT:? Pupils equal and reactive, sclerae is clear Neck:? Supple Respiratory:? Clear to auscultation bilaterally, decreased at bases, adequate air entry Cardiac:? S1-S2 is normal, regular rate and rhythm Abdomen:? Soft, nontender, nondistended, normoactive bowel sounds Extremities:? Right groin site without evidence of hematoma or ecchymosis, palpable pedal pulses bilaterally Neuro:? Patient is awake, alert, oriented, non for Skin:? Warm and dry, no skin lesions noted Psych:? Normal mentation and affect Discharge Plan Discharge Activity: other - see discharge instructions Diet: heart healthy Wound Care Instructions: follow printed instructions Patient Instructions: Heart Attack (GEN), Safe Use of Anticoagulants (GEN), Right Heart Catheterization (GEN) Patient Language: Maltese Discharge Medications: New Brilinta 90 mg Tablet 90 mg PO Q12HR Qty: 60 11RF Continued aspirin [Baby Aspirin] 81 mg Tablet,Chewable 81 mg PO DAILY rosuvastatin 40 mg tablet 40 mg PO DAILY mupirocin 2 % ointment 1 applic topical BID 7 Days Qty: 22 0RF diclofenac sodium 1 % gel 4 g topical QID 7 Days Qty: 100 0RF Rx Instructions: apply to single shoulder metoprolol tartrate 25 mg Tablet 25 mg PO BID Discontinued Xarelto 2.5 mg tablet 2.5 mg PO Q24H Date of admission: 05/19/24 20:39 Primary Care Provider: Mikaela Tyler Admitting Provider: Nic Rosales Attending physician on admission: Nic Rosales Condition: Serious
== END 2024-05-21 12:03 | disposition home or self-care (01) | DRG 322 ==
LOC: ANHED 20:55 → ANHICU 21:01 → ANHIMU 05-21 11:44 → ANHICU 05-23 09:14
PROVIDERS: Emergency Medicine; Admitting Provider Internal Medicine Cardiovascular Disease; Emergency Provider Student in an Organized Health Care Education/Training Program; Visit Provider Internal Medicine Interventional Cardiology
PROC: 4A023N7 Measurement of Cardiac Sampling and Pressure, Left Heart, Percutaneous Approach (ICD-10-PCS; CPT 93459; principal; 2024-05-19 20:40)
PROC: 027035Z Dilation of Coronary Artery, One Artery with Two Drug-eluting Intraluminal Devices, Percutaneous Approach (ICD-10-PCS; 2024-05-19 20:40)
PROC: 027035Z Dilation of Coronary Artery, One Artery with Two Drug-eluting Intraluminal Devices, Percutaneous Approach (ICD-10-PCS; 2024-05-19 20:40)
DX: I21.19 ST elevation (STEMI) myocardial infarction involving other coronary artery of inferior wall (principal); I25.10 Atherosclerotic heart disease of native coronary artery without angina pectoris; E78.5 Hyperlipidemia, unspecified; I10 Essential (primary) hypertension; F17.210 Nicotine dependence, cigarettes, uncomplicated; E55.9 Vitamin D deficiency, unspecified; D75.1 Secondary polycythemia; E29.1 Testicular hypofunction; K21.9 Gastro-esophageal reflux disease without esophagitis; F17.220 Nicotine dependence, chewing tobacco, uncomplicated; Z95.1 Presence of aortocoronary bypass graft; Z79.899 Other long term (current) drug therapy; Z79.01 Long term (current) use of anticoagulants; Z79.82 Long term (current) use of aspirin
CPT/HCPCS: 36415; 71045; 80048; 80053; 80061; 83036; 83690; 84484; 85025; 85610; 85730; 92978; 93005; 93459; 96374; 96375; 99291; A9270; C1725; C1753; C1757; C1769; C1874; C1887; C1894; C7532; C9606; J0461; J0583; J1171; J1644; J2003; J2250; J2405; J3010; J7030; J7040

== ENCOUNTER 2024-12-01 14:10 | Outpatient (CLI) | payer OTHER, SELFPAY ==
--- NOTE | ~2024-12-01 | XR_ITS ---
XR chest 2V 12/01/2024 14:22 Indication: Malignant neoplasm of the kidney Procedure: 2 view chest Comparison: 05/19/2024 Findings: Status post median sternotomy for CABG. Heart size is normal. No focal air space disease, pulmonary edema, pleural effusion or suspected pneumothorax. Impression: 1: No acute cardiopulmonary disease. Reviewed, dictated and finalized at location O. Impression: 1: No acute cardiopulmonary disease.
== END 2024-12-01 14:11 | disposition home or self-care (01) ==
LOC: MICIMG 14:13
PROVIDERS: PCP Urology; Visit Provider Urology
DX: C64.1 Malignant neoplasm of right kidney, except renal pelvis (principal)
CPT/HCPCS: 71046